=== PATIENT | male | born 1975 | race American Indian/Alaskan Native ===

== ENCOUNTER 2021-08-17 12:59 | Inpatient (IN) | payer OTHER ==
--- NOTE | 2021-08-17 14:33 | Event Note ---
ED Screening Note ED Screening Note: sent here by Dr Bryan presented to her with cp and sob hx hf- no follow up now with ble and ascities pmh hf rx none cig daily etoh no drugs psh sinus family hx cad on fathers side This initial assessment/diagnostic orders/clinical plan/treatment(s) is/are subject to change based on patients health status, clinical progression and re- assessment by fellow clinical providers in the ED. Further treatment and workup at subsequent clinical providers discretion. Patient/guardian urged not to elope from the ED as their condition may be serious if not clinically assessed and managed. Initial orders include: hf w/u
[2021-08-17 15:06] LABS: Basophils # (Auto) 0.1 K/mm3 (0.0-0.1); Basophils % (Auto) 1.4 % (0.0-1.8); Eosinophils # (Auto) 0.1 K/mm3 (0.0-0.4); Eosinophils % (Auto) 2.3 % (0.0-4.3); Hematocrit 41.7 % (35.5-45.6); Hemoglobin 13.2 gm/dl (11.8-15.2); Lymphocytes # (Auto) 1.2 K/mm3 (1.2-5.4); Lymphocytes % (Auto) 32.7 % (13.4-35.0); Mean Corpuscular HGB Conc 32 % (32-34); Mean Corpuscular Volume 93 fl (84-94); Monocytes # (Auto) 0.5 K/mm3 (0.0-0.8); Monocytes % (Auto) 13.4 % (0.0-7.3); Platelet Count 231 K/mm3 (140-440); Red Cell Distribution Width 18.3 % (13.2-15.2)
[2021-08-17 15:35] LABS: Alanine Aminotransferase 16 units/L (7-56); Albumin 3.4 g/dL (3.9-5); BUN/Creatinine Ratio 19; Blood Urea Nitrogen 15 mg/dL (9-20); Calcium 8.8 mg/dL (8.4-10.2); Hemolysis Index 24
[2021-08-17] MEDS ORDERED: cefTRIAXone/NS 2 GM/100 ML 2 GM/100 ML BAG IV ONE (16:09)
[2021-08-17] MEDS ORDERED: AZITHROMYCIN/NS 500 MG/250 ML 500 MG/250 ML BAG IV ONE (16:09)
[2021-08-17] MEDS ORDERED: ASPIRIN EC 325 MG TAB PO ONE (16:10)
[2021-08-17] MEDS ORDERED: FUROSEMIDE 40 MG/4 ML INJ IV ONE (16:10)
--- NOTE | 2021-08-17 16:13 | Emergency Department Report ---
HPI - General Chief Complaint: Chest Pain PUI?: Yes Time Seen by Provider: 08/17/21 14:31 - HPI HPI: 45-year-old male with history of CHF which was diagnosed several years ago but the patient never followed up and takes no daily medications presents today complaining of 1.5 weeks of symptoms including intermittent chest pain, pr ogressive lower extremity swelling, abdominal distention, dry cough, and shortness of breath. The patient states that he saw a primary care doctor today who sent him to the emergency room for further evaluation. The patient describes intermittent episodes of mid substernal chest pain which are non radiating and pressure-like lasting for few minutes and then resolving spontaneously. He says his last episode of chest pain was 2 days ago. He reports feeling generally short of breath with exertion and with a dry cough and increased swelling resulting in 30 pounds of unintentional weight gain. He otherwise denies any associated fever/chills, headache, vision change, neck pain, back pain, abdominal pain, nausea/vomiting, focal weakness, sensory changes, dysuria, discharge, or any other complaints. He is not vaccinated against COVID-19. He drinks approximately three alcoholic beverages per week. ED Past Medical Hx - Past Medical History Previous Medical History?: Yes Hx Congestive Heart Failure: Yes - Social History Smoking Status: Never Smoker ED Review of Systems ROS: Stated complaint: CHEST PAIN Other details as noted in HPI Comment: All other systems reviewed and negative Constitutional: denies: chills, fever Eyes: denies: eye pain, vision change ENT: denies: throat pain, congestion Respiratory: cough, shortness of breath, SOB with exertion Cardiovascular: chest pain, edema. denies: palpitations, syncope Gastrointestinal: denies: abdominal pain, nausea, vomiting Genitourinary: denies: dysuria, frequency Musculoskeletal: denies: back pain, arthralgia Skin: pruritus. denies: lesions Neurological: denies: headache, weakness, numbness, paresthesias Hematological/Lymphatic: denies: easy bleeding Physical Exam - Physical Exam Vital Signs: Vital Signs 08/17/21 14:19 Temperature 98.3 F Pulse Rate 108 H Respiratory 18 Rate Blood Pressure 136/97 O2 Sat by Pulse 97 Oximetry Physical Exam: GENERAL: Well developed and well nourished. No acute distress HEAD: Normocephalic. No obvious signs of trauma. ENT: Dry mucous membranes. EYES: Extraocular movements are intact. Pupils are equal round and reactive to light bilaterally. Scleral icterus noted bilaterally NECK: Supple. Full ROM is intact. Trachea is midline. LUNGS: Tachypneic but in no respiratory distress. Equal chest rise bilaterally. Decreased breath sounds noted over the right side all the way up to the upper lung zones. Otherwise clear to auscultation. CARDIOVASCULAR: Tachycardic but with regular rhythm. No murmurs or rubs. VASCULAR: Cap refill < 2 seconds. 3+ pitting edema bilaterally ABDOMEN: Abdomen is distended with positive fluid wave. No tenderness noted. There is no significant tenderness, guarding or rebound. SKIN: Skin is warm and dry NEURO: Patient is awake, alert, and oriented. seat coverer II-XII grossly intact. No focal deficits. Normal motor and sensory exam throughout. Normal speech. MUSCULOSKELETAL: No obvious deformities. No significant tenderness. Normal ROM throughout. BACK/SPINE: No midline tenderness or step-offs of the C/T/L spine. No costovertebral angle tenderness. ED Course Vital Signs 08/17/21 14:19 Temperature 98.3 F Pulse Rate 108 H Respiratory 18 Rate Blood Pressure 136/97 O2 Sat by Pulse 97 Oximetry ED Medical Decision Making - Lab Data Result diagrams: 08/17/21 14:50 08/17/21 14:50 Lab Results 08/17/21 08/17/21 08/17/21 Range/Units 14:50 14:50 15:51 WBC 3.7 L (4.5-11.0) K/mm3 RBC 4.50 (3.65-5.03) M/mm3 Hgb 13.2 (11.8-15.2) gm/dl Hct 41.7 (35.5-45.6) % MCV 93 (84-94) fl MCH 29 (28-32) pg MCHC 32 (32-34) % RDW 18.3 H (13.2-15.2) % Plt Count 231 (140-440) K/mm3 Lymph % (Auto) 32.7 (13.4-35.0) % [place] % (Auto) 13.4 H (0.0-7.3) % Eos % (Auto) 2.3 (0.0-4.3) % Baso % (Auto) 1.4 (0.0-1.8) % Lymph # (Auto) 1.2 (1.2-5.4) K/mm3 [place] # (Auto) 0.5 (0.0-0.8) K/mm3 Eos # (Auto) 0.1 (0.0-0.4) K/mm3 Baso # (Auto) 0.1 (0.0-0.1) K/mm3 Seg Neutrophils % 50.2 (40.0-70.0) % Seg Neutrophils # 1.9 (1.8-7.7) K/mm3 PT (12.2-14.9) Sec. INR (0.87-1.13) APTT (24.2-36.6) Sec. Sodium 135 L (137-145) mmol/L Potassium 4.6 (3.6-5.0) mmol/L Chloride 100.9 (98-107) mmol/L Carbon Dioxide 20 L (22-30) mmol/L Anion Gap 19 mmol/L BUN 15 (9-20) mg/dL Creatinine 0.8 (0.8-1.3) mg/dL Estimated GFR > 60 ml/min BUN/Creatinine Ratio 19 % Glucose 100 (75-100) mg/dL Calcium 8.8 (8.4-10.2) mg/dL Magnesium (1.7-2.3) mg/dL Total Bilirubin 2.40 H 2.40 H (0.1-1.2) mg/dL Direct Bilirubin 1.4 H (0-0.2) mg/dL Indirect Bilirubin 1.0 mg/dL AST 29 (5-40) units/L ALT 16 (7-56) units/L Alkaline Phosphatase 188 H (35-129) units/L Troponin T < 0.010 (0.00-0.029) ng/mL NT-Pro-B Natriuret Pep 1705 H (0-450) pg/mL Total Protein 9.2 H (6.3-8.2) g/dL Albumin 3.4 L (3.9-5) g/dL Albumin/Globulin Ratio 0.6 % Lipase 17 (13-60) units/L Plasma/Serum Alcohol (0-0.07) % 08/17/21 08/17/21 08/17/21 Range/Units 16:43 16:43 16:43 WBC (4.5-11.0) K/mm3 RBC (3.65-5.03) M/mm3 Hgb (11.8-15.2) gm/dl Hct (35.5-45.6) % MCV (84-94) fl MCH (28-32) pg MCHC (32-34) % RDW (13.2-15.2) % Plt Count (140-440) K/mm3 Lymph % (Auto) (13.4-35.0) % [place] % (Auto) (0.0-7.3) % Eos % (Auto) (0.0-4.3) % Baso % (Auto) (0.0-1.8) % Lymph # (Auto) (1.2-5.4) K/mm3 [place] # (Auto) (0.0-0.8) K/mm3 Eos # (Auto) (0.0-0.4) K/mm3 Baso # (Auto) (0.0-0.1) K/mm3 Seg Neutrophils % (40.0-70.0) % Seg Neutrophils # (1.8-7.7) K/mm3 PT 18.0 H (12.2-14.9) Sec. INR 1.35 H (0.87-1.13) APTT 37.2 H (24.2-36.6) Sec. Sodium (137-145) mmol/L Potassium (3.6-5.0) mmol/L Chloride (98-107) mmol/L Carbon Dioxide (22-30) mmol/L Anion Gap mmol/L BUN (9-20) mg/dL Creatinine (0.8-1.3) mg/dL Estimated GFR ml/min BUN/Creatinine Ratio % Glucose (75-100) mg/dL Calcium (8.4-10.2) mg/dL Magnesium 1.90 (1.7-2.3) mg/dL Total Bilirubin (0.1-1.2) mg/dL Direct Bilirubin (0-0.2) mg/dL Indirect Bilirubin mg/dL AST (5-40) units/L ALT (7-56) units/L Alkaline Phosphatase (35-129) units/L Troponin T (0.00-0.029) ng/mL NT-Pro-B Natriuret Pep (0-450) pg/mL Total Protein (6.3-8.2) g/dL Albumin (3.9-5) g/dL Albumin/Globulin Ratio % Lipase (13-60) units/L Plasma/Serum Alcohol < 0.01 (0-0.07) % - EKG Data -: EKG Interpreted by Mt - EKG Data 08/17/21 17:02 Sinus tachycardia. Normal axis. Normal intervals. No ectopy. Poor R wave noted in the lateral leads. No significant ST segment or T wave abnormalities. - Radiology Data Radiology results: report reviewed - Medical Decision Making 45-year-old male with history of CHF in the past who never followed up and does not take daily meds presenting with almost 2 weeks of symptoms including intermittent chest pain, shortness of breath, lower extremity and abdominal distention as well as dry cough. His last episode of chest pain was 2 days ago. Initial assessment shows that the patient is afebrile and with normal vital signs with the exception of elevated heart rate in the 100s. On physical examination he has dry mucous membranes and bilateral scleral icterus noted on exam. He has a nonfocal neurologic exam. Lung auscultation reveals decreased breath sounds noted over the right side but otherwise clear. He has abdominal distention with a positive fluid wave but is nontender. There is 3+ pitting edema the bilateral lower extremities. Labs were drawn in triage and reveal mild leukopenia with white blood cells of 3.7. There is no significant anemia. Kidney function is normal and there are no significant electrolyte abnormalities. However, T bili is elevated at 2.4. Troponin is negative. BNP is elevated at 1705. Lipase is normal. We will send D bili to determine whether hyperbilirubinemia is indirect or direct. Chest x-ray reveals moderate right pleural effusion with right basilar opacification and small left pleural effusion. Although this finding could be seen in CHF exacerbation, it could also be seen in parapneumonic effusion. The patient's T bili is elevated at 1.4. Given the elevated D bili as well as the patient's tachycardia and chest x-ray findings we will perform CTA of the chest/abdomen to assess for evidence of PE versus pneumonia versus hemorrhage versus pancreatitis versus hepatitis versus pyelonephritis versus colitis versus other intra thoracoabdominal abnormality to explain patient's presentation. Given the possibility of parapneumonic effusion we will give empiric IV ceftriaxone and azithromycin for possible community-acquired pneumonia. We will give full-strength aspirin given the patient's chest pain. Given suspected heart failure we will give Lasix 40 mg IV for now. Magnesium level is normal. Alcohol level is negative. Coags are noted to be elevated. CTA of the chest shows no evidence of pulmonary embolism but there is finding of small right pleural effusion with thickened pleura wall and loculated pleural fluid collection most consistent with empyema. CTA of the abdomen shows thickened gallbladder but no pericholecystic fluid and normal bile ducts. For further assessment of the gallbladder I have ordered right upper quadrant ultrasound. In addition for broader antibiotic coverage I have ordered 1 dose of IV Zosyn Given finding of possible empyema I spoke with Dr. Membreno of pulmonology regarding the case and she recommends admission to the hospital for possible pleurodesis and will give further recommendations on the inpatient side. I spoke with the patient regarding the current working diagnosis and results of the diagnostic tests as well as the plan of care for admission with IV antibiotics and for further work-up and management as deemed necessary. He expr essed understanding and agreement with this plan of care I spoke with Dr. Lind, the on-call hospitalist regarding case at 7:05 PM and he accepts the patient for admission and will assume care. Critical Care Time: Yes Critical care time in (mins) excluding proc time.: 35 Critical care attestation.: If time is entered above; I have spent that time in minutes in the direct care of this critically ill patient, excluding procedure time. Critical care time was spent in the evaluation/assessment, work-up, and management of acute on chronic CHF with volume overload as well as liver failure requiring administration of IV Lasix as well as broad-spectrum from IV antibiotics and consultation with specialist given possibility of empyema as well as discussion with the patient and frequent and repeat reevaluation and assessment. ED Disposition Clinical Impression: Ascites, Jaundice, Hyperbilirubinemia, Empyema, right, Suspected COVID-19 virus infection, Bilateral pleural effusion, Elevated INR, Acute exacerbation of CHF (congestive heart failure) Disposition: ADMITTED INPATIENT Is pt being admited?: Yes Condition: Stable
[2021-08-17 16:35] LABS: Bilirubin,Direct 1.4 mg/dL (0-0.2)
[2021-08-17 17:19] LABS: INR 1.35 (0.87-1.13)
[2021-08-17 17:20] LABS: Partial Thromboplastin Time 37.2 Sec. (24.2-36.6)
[2021-08-17] MEDS ORDERED: PIPERACIL/TAZOBACTA 4.5/NS 100 4.5 GM/100 ML VIAL IV ONE (18:29)
[2021-08-17] MEDS ORDERED: diphenhydrAMINE 50 MG/ML VIAL IV ONE (19:46)
[2021-08-17 19:48] LABS: Amphetamine Screen,Urine Negative; Benzodiazepines Screen,Urine Negative; Cannabinoid Screen,Urine Negative; Cocaine Screen,Urine Negative; Methadone Screen,Urine Negative; Opiate Screen,Urine Negative
[2021-08-17] MEDS ORDERED: ACETAMINOPHEN 325 MG TAB PO PRN (20:03)
[2021-08-17] MEDS ORDERED: oxyCODONE /ACETAMINOPHEN 5-325MG TAB PO PRN (20:03)
[2021-08-17] MEDS ORDERED: ONDANSETRON 4 MG/2 ML INJ IV PRN (20:03)
[2021-08-17] MEDS ORDERED: ALBUTEROL 2.5 MG/3 ML NEBU IH PRN (20:03)
[2021-08-17] MEDS ORDERED: HYDROmorphone 1 MG/1 ML INJ IV PRN (20:03)
[2021-08-17] MEDS ORDERED: LORazepam 2 MG/ML VIAL IV PRN (20:10)
[2021-08-17] MEDS ORDERED: THIAMINE 100 MG TAB PO ONE (20:11)
[2021-08-17] MEDS ORDERED: MULTIVITAMINS ,THERAPEUTIC TAB PO ONE (20:11)
--- NOTE | 2021-08-17 20:11 | History and Physical Report ---
History of Present Illness Chief complaint: My chest feels tight and my doctor told me to come in History of present illness: 45 YO Male with CHF, ETOH Dependence, Noncompliance presents ED for evaluation. Patient reports "my chest feels tight". Patient states that he has experienced chest discomfort over the past 10 days with intermittent symptoms over the same timeframe. Patient states that he has experienced dry cough, shortness of breath, and chest discomfort after coughing episodes. Patient states that he was seen by his primary care physician and was instructed to seek further care at [facility]. Patient transported to [facility] via private vehicle for further care and evaluation of the aforementioned symptoms. The patient was seen and evaluated in the emergency department. All lab and imaging studies reviewed. Patient underwent chest x-ray and was found to have small right-sided pleural effusion with suspected loculation, pneumonia, as well as lab findings consistent with CHF decompensation. Patient admitted to medical floor and initiated on CHF protocol as well as pneumonia protocol. Pulmonary team consulted in ED. Patient denies fever, chills, chest pain, palpitation, skin rash, recent contact, known exposure to COVID-19. No prior admission for review. No medication listed at time of admission for reconciliation. Advanced care planning conducted in ED. Past History Past Medical History: heart failure, other (See HPI) Past Surgical History: No surgical history, Other (Reviewed) Social history: , alcohol abuse. denies: smoking, prescription drug abuse Family history: hypertension Medications and Allergies Allergies Allergy/AdvReac Type Severity Reaction Status Date / Time No Known Allergies Allergy Verified 08/17/21 16:34 Active Meds: Active Medications Acetaminophen (Acetaminophen 325 Mg Tab) 650 mg PO Q4H PRN PRN Reason: Pain MILD(1-3)/Fever >100.5/MEDINA Albuterol (Albuterol 2.5 Mg/3 Ml Nebu) 2.5 mg IH Q4HRT PRN PRN Reason: Shortness Of Breath Furosemide (Furosemide 20 Mg/2 Ml Inj) 20 mg IV BID@0600,1800 LIA Hydromorphone HCl (Hydromorphone 1 Mg/1 Ml Inj) 0.5 mg IV Q23H PRN PRN Reason: Pain , Severe (7-10) Levofloxacin/Dextrose (Levaquin 750mg/150ml) 750 mg in 150 mls @ 100 mls/hr IV Q24H LIA; Protocol Lorazepam (Lorazepam 2 Mg/Ml Vial) 2 mg IV Q1HR PRN PRN Reason: CIWA-Ar 8-15 Ondansetron HCl (Ondansetron 4 Mg/2 Ml Inj) 4 mg IV Q8H PRN PRN Reason: Nausea And Vomiting Oxycodone/Acetaminophen (Oxycodone /Acetaminophen 5-325mg Tab) 1 tab PO Q16H PRN PRN Reason: Pain, Moderate (4-6) Sodium Chloride (Sodium Chloride 0.9% 10 Ml Flush Syringe) 10 ml IV BID LIA Sodium Chloride (Sodium Chloride 0.9% 10 Ml Flush Syringe) 10 ml IV PRN PRN PRN Reason: LINE FLUSH Review of Systems Constitutional: weight gain Ears, nose, mouth and throat: no ear pain, no tinnitis, no nose pain, no nasal congestion Cardiovascular: shortness of breath, leg edema, decreased exercise tolerance, no chest pain Respiratory: no cough, no cough with sputum, no excessive sputum Gastrointestinal: no abdominal pain, no nausea, no vomiting, no diarrhea Genitourinary Male: no hematuria, no flank pain, no discharge, no urinary frequency, no urinary hesitancy, no nocturia Rectal: no pain, no incontinence, no bleeding Musculoskeletal: no neck stiffness, no neck pain, no shooting arm pain, no arm numbness/tingling Integumentary: no rash, no pruritis, no sores, no wounds Neurological: no transient paralysis, no paralysis, no weakness, no parathesias Psychiatric: no anxiety, no memory loss, no change in sleep habits, no sleep disturbances, no change in appetite Endocrine: no cold intolerance, no heat intolerance, no polyphagia, no polyd ipsia, no polyuria Hematologic/Lymphatic: no easy bruising, no easy bleeding, no lymphedema Allergic/Immunologic: no urticaria, no wheezing, no persistent infections, no anaphylaxis Exam - Constitutional Vitals: Temp Pulse Resp BP Pulse Ox 98.3 F 100 H 13 134/89 100 08/17/21 14:19 08/17/21 19:15 08/17/21 19:15 08/17/21 19:15 08/17/21 19:15 General appearance: Present: mild distress - EENT Eyes: Present: PERRL ENT: hearing intact, clear oral mucosa - Neck Neck: Present: supple, normal ROM - Respiratory Respiratory effort: normal Respiratory: right: diminished - Cardiovascular Rhythm: regular Heart Sounds: Present: S1 & S2. Absent: rub, click - Extremities Extremities: pulses symmetrical Extremity abnormal: edema Peripheral Pulses: within normal limits - Abdominal General gastrointestinal: Present: soft, non-tender, non-distended, normal bowel sounds Male genitourinary: Present: normal - Integumentary Integumentary: Present: clear, warm, dry - Musculoskeletal Musculoskeletal: gait normal, strength equal bilaterally - Psychiatric Psychiatric: appropriate mood/affect, intact judgment & insight - Neurologic Neurologic: CNII-XII intact, moves all extremities HEART Score - HEART Score Troponin: Troponin T < 0.010 ng/mL (0.00-0.029) 08/17/21 17:53 Results - Labs CBC & Chem 7: 08/17/21 14:50 08/17/21 14:50 Labs: Abnormal lab results 08/17/21 08/17/21 08/17/21 Range/Units 14:50 14:50 15:51 WBC 3.7 L (4.5-11.0) K/mm3 RDW 18.3 H (13.2-15.2) % [place] % (Auto) 13.4 H (0.0-7.3) % PT (12.2-14.9) Sec. INR (0.87-1.13) APTT (24.2-36.6) Sec. Sodium 135 L (137-145) mmol/L Carbon Dioxide 20 L (22-30) mmol/L Total Bilirubin 2.40 H 2.40 H (0.1-1.2) mg/dL Direct Bilirubin 1.4 H (0-0.2) mg/dL Alkaline Phosphatase 188 H (35-129) units/L NT-Pro-B Natriuret Pep 1705 H (0-450) pg/mL Total Protein 9.2 H (6.3-8.2) g/dL Albumin 3.4 L (3.9-5) g/dL 08/17/21 Range/Units 16:43 WBC (4.5-11.0) K/mm3 RDW (13.2-15.2) % [place] % (Auto) (0.0-7.3) % PT 18.0 H (12.2-14.9) Sec. INR 1.35 H (0.87-1.13) APTT 37.2 H (24.2-36.6) Sec. Sodium (137-145) mmol/L Carbon Dioxide (22-30) mmol/L Total Bilirubin (0.1-1.2) mg/dL Direct Bilirubin (0-0.2) mg/dL Alkaline Phosphatase (35-129) units/L NT-Pro-B Natriuret Pep (0-450) pg/mL Total Protein (6.3-8.2) g/dL Albumin (3.9-5) g/dL Assessment and Plan - Patient Problems (1) Pneumonia Current Visit: Yes Status: Acute Plan to address problem: Pneumonia protocol: Chest x-ray, CT scan chest, supplemental oxygen, pulse oximetry, IV antibiotic therapy, nebulizer therapy, pulmonary team consulted. (2) CHF (congestive heart failure) Current Visit: Yes Status: Acute Qualifiers: Heart failure chronicity: chronic Plan to address problem: Strict I/O, monitor urine output every shift, daily weight, afterload reduction, diuresis, BNP (3) Pleural effusion Current Visit: Yes Status: Acute Plan to address problem: Chest x-ray, CT scan chest, pulmonary team consulted. (4) Alcohol dependence Current Visit: Yes Status: Acute Plan to address problem: CIWA protocol, thiamine, folic acid, multivitamin daily. (5) Monoclonal gammopathy Current Visit: Yes Status: Acute Plan to address problem: Patient has elevated gamma gap. HIV, hepatitis panel, supportive care. (6) Noncompliance with medication regimen Current Visit: Yes Status: Acute Plan to address problem: Patient counseled regarding importance of medication compliance as well as outpatient medical follow-up. Patient reports that he will be more compliant in the future. (7) COVID-19 vaccination not done Current Visit: Yes Status: Acute Plan to address problem: Patient counseled, supportive care. (8) DVT prophylaxis Current Visit: Yes Status: Acute Plan to address problem: SCD bilateral lower extremities while in bed, patient is ambulatory (9) Advance care planning Current Visit: Yes Status: Acute Plan to address problem: Disease education conducted, care plan discussed, diagnoses discussed, prognosis discussed, patient is full code. Patient acknowledges understanding and agreement with care plan, +30 minutes.
[2021-08-17 23:13] LABS: RBC,Urine < 1.0 /HPF (0.0-6.0); WBC,Urine < 1.0 /HPF (0.0-6.0)
[2021-08-17 23:33] LABS: Color,Urine Colorless (Yellow)
[2021-08-17 23:34] LABS: Bilirubin,Urine Negative (Negative); Blood,Urine Negative (Negative); Protein,Urine <15 mg/dL mg/dL (Negative)
--- NOTE | 2021-08-17 23:53 | XRay Report ---
CHEST 2 VIEWS INDICATION / CLINICAL INFORMATION: Chest Pain. COMPARISON: None available. FINDINGS: SUPPORT DEVICES: None. HEART / MEDIASTINUM: No significant abnormality. LUNGS / PLEURA: There is a moderate right pleural effusion with right basilar opacification and small left pleural effusion with left basilar opacification. No pneumothorax. ADDITIONAL FINDINGS: No significant additional findings. IMPRESSION: 1. 100 right pleural effusion and small left pleural effusion with bibasilar opacifications. Signer Name: Jan Mercer DO Signed: 08/17/2021 2:57 PM Workstation Name: [id number]
--- NOTE | 2021-08-17 23:53 | Cat Scan Report ---
CTA CHEST WITH CONTRAST INDICATION / CLINICAL INFORMATION: R pleural effusion, tachy, eval for PE. TECHNIQUE: Axial CT images were obtained through the chest after injection of 100 cc of Omnipaque 350 IV contrast. 3 plane MIP and/or 3D reconstructions were produced. All CT scans at this location are performed using CT dose reduction for ALARA by means of automated exposure control. COMPARISON: Chest radiograph from earlier in the day FINDINGS: PULMONARY ARTERIES: No pulmonary emboli. THORACIC AORTA: No significant abnormality. HEART: Cardiomegaly CORONARY ARTERY CALCIFICATION: None. MEDIASTINUM / RALPH: No significant abnormality. PLEURA: There is a small dependent left pleural effusion. There is a small right pleural effusion wit h thickened and enhancing pleural wall. There is loculated pleural fluid collection in the minor fiss ure. No pneumothorax. LUNGS: There is rounded atelectasis within the right lower lobe. There is dependent atelectasis in th e bilateral lung bases. No concerning focal consolidation, pulmonary mass or nodule. ADDITIONAL FINDINGS: None. SKELETAL STRUCTURES: No significant osseous abnormality. IMPRESSION: 1. No CT evidence for pulmonary embolism. 2. Small right pleural effusion with thickened and enhancing pleural wall. This suggests empyema. The re is rounded atelectasis in the adjacent lung. 3. Dependent left pleural effusion. 4. Cardiomegaly. CT ABDOMEN AND PELVIS WITH CONTRAST INDICATION / CLINICAL INFORMATION: R pleural effusion, tachy, eval for PE. TECHNIQUE: Axial CT images were obtained through the abdomen and pelvis after 100 cc of Omnipaque [address] scans at this location are performed using CT dose reduction for ALARA by means of automated exposure control. COMPARISON: None available. FINDINGS: AORTA / ARTERIES: Mild atherosclerotic calcification without acute abnormality. IVC / VEINS: No significant abnormality. LYMPH NODES: No significant adenopathy. COLON: No significant abnormality. APPENDIX: No significant abnormality. STOMACH / SMALL BOWEL: No significant abnormality. PERITONEUM: Mild/moderate intra-abdominal ascites. No free air. No fluid collection. LIVER: Mild decreased attenuation which may be secondary to hepatic steatosis versus diffuse hepatic disease. GALLBLADDER: Mild gallbladder wall thickening. BILE DUCTS: No significant abnormality. PANCREAS: No significant abnormality. SPLEEN: No significant abnormality. ADRENALS: No significant abnormality. RIGHT KIDNEY / URETER: No significant abnormality. LEFT KIDNEY / URETER: No significant abnormality. URINARY BLADDER: No significant abnormality. REPRODUCTIVE ORGANS: No significant abnormality. SKELETAL SYSTEM: No significant abnormality. ADDITIONAL FINDINGS: None. IMPRESSION: 1. There is mild to moderate intra-abdominal ascites. 2. Mild thickening of the gallbladder wall without pericholecystic inflammation. 3. Decreased attenuation of the liver suggesting hepatic steatosis versus diffuse hepatic disease Please see above for impression of the CT pulmonary angiogram Signer Name: Jan Mercer DO Signed: 08/17/2021 6:18 PM Workstation Name: [id number]
--- NOTE | 2021-08-17 23:54 | Ultrasound Report ---
ULTRASOUND ABDOMEN, LIMITED INDICATION / CLINICAL INFORMATION: assess GB. COMPARISON: None available. FINDINGS: PANCREAS: Not well visualized due to overlying bowel gas. LIVER: The liver is enlarged measuring 18.9 cm. The liver is also echogenic. The main portal vein is patent. GALLBLADDER: The gallbladder is contracted and the wall measures 3 mm. No pericholecystic fluid. No s tones. BILE DUCTS: No significant abnormality. Common bile duct measures 3 mm. FREE FLUID: Mild ascites. ADDITIONAL FINDINGS: None. IMPRESSION: 1. Hepatomegaly and steatosis. 2. The gallbladder is contracted. No sonographic evidence of cholecystitis. No gallstones. 3. Mild ascites. Signer Name: Elias Springer MD Signed: 08/17/2021 9:28 PM Workstation Name: [id number]
[2021-08-18] MEDS ORDERED: THIAMINE 100 MG TAB PO ONE (00:30)
[2021-08-18] MEDS ORDERED: MULTIVITAMINS ,THERAPEUTIC TAB PO ONE (00:30)
[2021-08-18] MEDS ORDERED: PIPERACIL/TAZOBACTA 4.5/NS 100 4.5 GM/100 ML VIAL IV ONE (00:30)
[2021-08-18 00:35] LABS: Hepatitis B Surface Antigen Non-Reactive (Negative); Hepatitis C Virus Antibody Non-Reactive (NonReactive)
[2021-08-18 06:04] LABS: Basophils # (Auto) 0.1 K/mm3 (0.0-0.1); Basophils % (Auto) 1.4 % (0.0-1.8); Eosinophils # (Auto) 0.2 K/mm3 (0.0-0.4); Eosinophils % (Auto) 4.5 % (0.0-4.3); Hematocrit 38.8 % (35.5-45.6); Hemoglobin 12.2 gm/dl (11.8-15.2); Lymphocytes # (Auto) 1.1 K/mm3 (1.2-5.4); Lymphocytes % (Auto) 28.8 % (13.4-35.0); Mean Corpuscular HGB Conc 31 % (32-34); Mean Corpuscular Volume 94 fl (84-94); Monocytes # (Auto) 0.6 K/mm3 (0.0-0.8); Monocytes % (Auto) 15.1 % (0.0-7.3); Platelet Count 206 K/mm3 (140-440); Red Blood Count 4.15 M/mm3 (3.65-5.03); Red Cell Distribution Width 18.3 % (13.2-15.2)
[2021-08-18 06:12] LABS: Alanine Aminotransferase 13 units/L (7-56); Albumin 2.9 g/dL (3.9-5); BUN/Creatinine Ratio 16; Blood Urea Nitrogen 16 mg/dL (9-20); Calcium 8.7 mg/dL (8.4-10.2); Hemolysis Index 0
[2021-08-18] MEDS: FUROSEMIDE 20 MG/2 ML INJ IV SCH ×2 (06:23→18:36)
--- NOTE | 2021-08-18 09:54 | Progress Note ---
Assessment and Plan Assessment and plan: Bilateral pneumonia Suspected COVID-19 pneumonia Bilateral pleural effusion. CTA suggestive of empyema for right pleural effusion EtOH abuse. Monoclonal gammopathy 08/18/2021. Continue O2 supplementation to maintain sats greater than 92%. Continue IV antibiotics of Levaquin. Consider ID consultation. Await pulmonary evaluation. Follow-up echocardiogram for bilateral pleural effusion. However, I suspect pleural effusions are para pneumonic. Check procalcitonin levels. History Interval history: No new issues overnight Hospitalist Physical - Constitutional Vitals: Temp Pulse Resp BP Pulse Ox 98.3 F 99 H 16 105/81 97 08/17/21 14:19 08/18/21 08:46 08/18/21 08:46 08/18/21 08:46 08/18/21 08:46 General appearance: Present: mild distress - EENT Eyes: Present: PERRL, EOM intact ENT: hearing intact, clear oral mucosa, dentition normal - Neck Neck: Present: supple, normal ROM - Respiratory Respiratory effort: normal Respiratory: bilateral: CTA - Cardiovascular Rhythm: regular Heart Sounds: Present: S1 & S2. Absent: gallop, rub - Extremities Extremities: no ischemia, No edema, Full ROM - Abdominal General gastrointestinal: soft, non-tender, non-distended, normal bowel sounds - Integumentary Integumentary: Present: clear, warm, dry - Neurologic Neurologic: CNII-XII intact, moves all extremities HEART Score - HEART Score Troponin: Troponin T < 0.010 ng/mL (0.00-0.029) 08/17/21 19:37 Results - Labs CBC & Chem 7: 08/18/21 05:27 08/18/21 05:27 Labs: Laboratory Last Values WBC 3.9 K/mm3 (4.5-11.0) L 08/18/21 05:27 RBC 4.15 M/mm3 (3.65-5.03) 08/18/21 05:27 Hgb 12.2 gm/dl (11.8-15.2) 08/18/21 05:27 Hct 38.8 % (35.5-45.6) 08/18/21 05:27 MCV 94 fl (84-94) 08/18/21 05:27 MCH 29 pg (28-32) 08/18/21 05:27 MCHC 31 % (32-34) L 08/18/21 05:27 RDW 18.3 % (13.2-15.2) H 08/18/21 05:27 Plt Count 206 K/mm3 (140-440) 08/18/21 05:27 Lymph % (Auto) 28.8 % (13.4-35.0) 08/18/21 05:27 [place] % (Auto) 15.1 % (0.0-7.3) H 08/18/21 05:27 Eos % (Auto) 4.5 % (0.0-4.3) H 08/18/21 05:27 Baso % (Auto) 1.4 % (0.0-1.8) 08/18/21 05:27 Lymph # (Auto) 1.1 K/mm3 (1.2-5.4) L 08/18/21 05:27 [place] # (Auto) 0.6 K/mm3 (0.0-0.8) 08/18/21 05:27 Eos # (Auto) 0.2 K/mm3 (0.0-0.4) 08/18/21 05:27 Baso # (Auto) 0.1 K/mm3 (0.0-0.1) 08/18/21 05:27 Seg Neutrophils % 50.2 % (40.0-70.0) 08/18/21 05:27 Seg Neutrophils # 2.0 K/mm3 (1.8-7.7) 08/18/21 05:27 PT 18.0 Sec. (12.2-14.9) H 08/17/21 16:43 INR 1.35 (0.87-1.13) H 08/17/21 16:43 APTT 37.2 Sec. (24.2-36.6) H 08/17/21 16:43 Sodium 133 mmol/L (137-145) L 08/18/21 05:27 Potassium 4.2 mmol/L (3.6-5.0) 08/18/21 05:27 Chloride 101.7 mmol/L (98-107) 08/18/21 05:27 Carbon Dioxide 21 mmol/L (22-30) L 08/18/21 05:27 Anion Gap 15 mmol/L 08/18/21 05:27 BUN 16 mg/dL (9-20) 08/18/21 05:27 Creatinine 1.0 mg/dL (0.8-1.3) 08/18/21 05:27 Estimated GFR > 60 ml/min 08/18/21 05:27 BUN/Creatinine Ratio 16 % 08/18/21 05:27 Glucose 98 mg/dL (75-100) 08/18/21 05:27 Calcium 8.7 mg/dL (8.4-10.2) 08/18/21 05:27 Magnesium 1.90 mg/dL (1.7-2.3) 08/17/21 16:43 Total Bilirubin 2.30 mg/dL (0.1-1.2) H 08/18/21 05:27 Direct Bilirubin 1.4 mg/dL (0-0.2) H 08/17/21 15:51 Indirect Bilirubin 1.0 mg/dL 08/17/21 15:51 AST 23 units/L (5-40) 08/18/21 05:27 ALT 13 units/L (7-56) 08/18/21 05:27 Alkaline Phosphatase 165 units/L (35-129) H 08/18/21 05:27 Troponin T < 0.010 ng/mL (0.00-0.029) 08/17/21 19:37 NT-Pro-B Natriuret Pep 1705 pg/mL (0-450) H 08/17/21 14:50 Total Protein 8.2 g/dL (6.3-8.2) 08/18/21 05:27 Albumin 2.9 g/dL (3.9-5) L 08/18/21 05:27 Albumin/Globulin Ratio 0.5 % 08/18/21 05:27 Lipase 17 units/L (13-60) 08/17/21 14:50 Urine Color Colorless (Yellow) 08/17/21 19:01 Urine Turbidity Clear (Clear) 08/17/21 19:01 Urine pH 5.0 (5.0-7.0) 08/17/21 19:01 Ur Specific [place] 1.005 (1.003-1.030) 08/17/21 19:01 Urine Protein <15 mg/dl mg/dL (Negative) 08/17/21 19:01 Urine Glucose (UA) Negative mg/dL (Negative) 08/17/21 19:01 Urine Ketones Negative mg/dL (Negative) 08/17/21 19:01 Urine Blood Negative (Negative) 08/17/21 19:01 Urine Nitrite Negative (Negative) 08/17/21 19:01 Ur Reducing Substances Not Reportable 08/17/21 19:01 Urine Bilirubin Negative (Negative) 08/17/21 19:01 Urine Ictotest Not Reportable 08/17/21 19:01 Urine Urobilinogen Not Reportable 08/17/21 19:01 Ur Leukocyte Esterase Negative (Negative) 08/17/21 19:01 Urine WBC (Auto) < 1.0 /HPF (0.0-6.0) 08/17/21 19:01 Urine RBC (Auto) < 1.0 /HPF (0.0-6.0) 08/17/21 19:01 Urine Opiates Screen Negative 08/17/21 19:01 Urine Methadone Screen Negative 08/17/21 19:01 Ur Barbiturates Screen Negative 08/17/21 19:01 Ur Phencyclidine Scrn Negative 08/17/21 19:01 Ur Amphetamines Screen Negative 08/17/21 19:01 U Benzodiazepines Scrn Negative 08/17/21 19:01 Urine Cocaine Screen Negative 08/17/21 19:01 U Marijuana (THC) Screen Negative 08/17/21 19:01 Drugs of Abuse Note Disclamer 08/17/21 19:01 Plasma/Serum Alcohol < 0.01 % (0-0.07) 08/17/21 16:43 Hepatitis A IgM Ab Non-reactive (NonReactive) 08/17/21 20:38 Hep Bs Antigen Non-reactive (Negative) 08/17/21 20:38 Hep B Core IgM Ab Non-reactive (NonReactive) 08/17/21 20:38 Hepatitis C Antibody Non-reactive (NonReactive) 08/17/21 20:38 HIV 1&2 Antibody Rapid Non react (Non React) 08/17/21 20:38 HIV P24 Antigen Non react (Non React) 08/17/21 20:38 Microbiology: Microbiology 08/17/21 16:49 Peripheral/Venous Blood Culture - Preliminary Culture in Progress 08/17/21 16:43 Peripheral/Venous Blood Culture - Preliminary Culture in Progress Active Medications - Current Medications Current Medications: Generic Name Dose Route Start Last Admin Trade Name Freq PRN Reason Stop Dose Admin Acetaminophen 650 mg 08/17/21 20:03 Acetaminophen 325 Mg Tab PO Q4H PRN Pain MILD(1-3)/Fever >100.5/MEDINA Albuterol 2.5 mg 08/17/21 20:03 Albuterol 2.5 Mg/3 Ml Nebu IH Q4HRT PRN Shortness Of Breath Folic Acid 1 mg 08/18/21 10:00 Folic Acid 1 Mg Tab PO QDAY LIA Furosemide 20 mg 08/18/21 06:00 08/18/21 06:23 Furosemide 20 Mg/2 Ml Inj IV 20 mg BID@0600,1800 LIA Administration Hydromorphone HCl 0.5 mg 08/17/21 20:03 Hydromorphone 1 Mg/1 Ml Inj IV Q23H PRN Pain , Severe (7-10) Levofloxacin/Dextrose 750 mg in 150 mls @ 100 mls/hr 08/18/21 21:00 Levaquin 750mg/150ml IV Q24H [facility] Protocol Lorazepam 2 mg 08/17/21 20:10 Lorazepam 2 Mg/Ml Vial IV Q1HR PRN CIWA-Ar 8-15 Ondansetron HCl 4 mg 08/17/21 20:03 Ondansetron 4 Mg/2 Ml Inj IV Q8H PRN Nausea And Vomiting Oxycodone/Acetaminophen 1 tab 08/17/21 20:03 Oxycodone /Acetaminophen 5-325mg Tab PO Q16H PRN Pain, Moderate (4-6) Sodium Chloride 10 ml 08/17/21 22:00 08/18/21 00:11 Sodium Chloride 0.9% 10 Ml Flush Syringe IV 10 ml BID LIA Administration Sodium Chloride 10 ml 08/17/21 20:03 Sodium Chloride 0.9% 10 Ml Flush Syringe IV PRN PRN LINE FLUSH
--- NOTE | 2021-08-18 10:23 | Consultation ---
History of Present Illness Consult date: 08/18/21 History of present illness: Patient getting Ultrasound now so not able to examine fully. Same history as from HPI in ED and IMS note. Past History Past Medical History: heart failure, other (See HPI) Past Surgical History: No surgical history, Other (Reviewed) Social history: , alcohol abuse. denies: smoking, prescription drug abuse Family history: hypertension Medications and Allergies Allergies Allergy/AdvReac Type Severity Reaction Status Date / Time No Known Allergies Allergy Verified 08/17/21 16:34 Active Meds: Active Medications Acetaminophen (Acetaminophen 325 Mg Tab) 650 mg PO Q4H PRN PRN Reason: Pain MILD(1-3)/Fever >100.5/MEDINA Albuterol (Albuterol 2.5 Mg/3 Ml Nebu) 2.5 mg IH Q4HRT PRN PRN Reason: Shortness Of Breath Folic Acid (Folic Acid 1 Mg Tab) 1 mg PO QDAY REPLACED BY [facility] Furosemide (Furosemide 20 Mg/2 Ml Inj) 20 mg IV BID@0600,1800 REPLACED BY [facility] Last Admin: 08/18/21 06:23 Dose: 20 mg Hydromorphone HCl (Hydromorphone 1 Mg/1 Ml Inj) 0.5 mg IV Q23H PRN PRN Reason: Pain , Severe (7-10) Levofloxacin/Dextrose (Levaquin 750mg/150ml) 750 mg in 150 mls @ 100 mls/hr IV Q24H REPLACED BY [facility]; Protocol Lorazepam (Lorazepam 2 Mg/Ml Vial) 2 mg IV Q1HR PRN PRN Reason: CIWA-Ar 8-15 Ondansetron HCl (Ondansetron 4 Mg/2 Ml Inj) 4 mg IV Q8H PRN PRN Reason: Nausea And Vomiting Oxycodone/Acetaminophen (Oxycodone /Acetaminophen 5-325mg Tab) 1 tab PO Q16H PRN PRN Reason: Pain, Moderate (4-6) Sodium Chloride (Sodium Chloride 0.9% 10 Ml Flush Syringe) 10 ml IV BID REPLACED BY [facility] Last Admin: 08/18/21 00:11 Dose: 10 ml Sodium Chloride (Sodium Chloride 0.9% 10 Ml Flush Syringe) 10 ml IV PRN PRN PRN Reason: LINE FLUSH Physical Examination Vital signs: Vital Signs Temp Pulse Resp BP Pulse Ox 98.3 F 108 H 18 136/97 97 08/17/21 14:19 08/17/21 14:19 08/17/21 14:19 08/17/21 14:19 08/17/21 14:19 Results - Laboratory Findings CBC and BMP: 08/18/21 05:27 08/18/21 05:27 PT/INR, D-dimer PT 18.0 Sec. (12.2-14.9) H 08/17/21 16:43 INR 1.35 (0.87-1.13) H 08/17/21 16:43 Abnormal lab findings: Abnormal Labs 08/17/21 08/17/21 08/17/21 14:50 14:50 15:51 WBC 3.7 L MCHC RDW 18.3 H [place] % (Auto) 13.4 H Eos % (Auto) Lymph # (Auto) PT INR APTT Sodium 135 L Carbon Dioxide 20 L Total Bilirubin 2.40 H 2.40 H Direct Bilirubin 1.4 H Alkaline Phosphatase 188 H NT-Pro-B Natriuret Pep 1705 H Total Protein 9.2 H Albumin 3.4 L 08/17/21 08/18/21 08/18/21 16:43 05:27 05:27 WBC 3.9 L MCHC 31 L RDW 18.3 H [place] % (Auto) 15.1 H Eos % (Auto) 4.5 H Lymph # (Auto) 1.1 L PT 18.0 H INR 1.35 H APTT 37.2 H Sodium 133 L Carbon Dioxide 21 L Total Bilirubin 2.30 H Direct Bilirubin Alkaline Phosphatase 165 H NT-Pro-B Natriuret Pep Total Protein Albumin 2.9 L Assessment and Plan 45 y/o male with known CHF, found to have small bilateral pleural effusions with what looks like to me on CT atelectasis with effusion on the right but rads is concerned for empyema. 1. Patient has had pleuritic like chest pain. Suggest obtaining ultrasound guided thoracentesis and ask that the drain the right sided completely. If puss, then would need chest tube for complete drainage. No objection to abx therapy. Please send fluid for the following: LDH, Protein, Cell count with diff, culture, glucose. 2. Agree with diuretics, obtain 2D echo 3. ok with abx but if space is infected, then drainage is the only thing that will help.
[2021-08-18] MEDS: FOLIC ACID 1 MG TAB PO SCH (12:57)
--- NOTE | 2021-08-18 14:05 | Electrocardiograph Report ---
[facility] Test Date: 2021-08-17 Test Time: 16:26:21 Pat Name: JADIEL MEADOWS Department: Room: A389 Gender: M [employer]: WOO : [id number] Requested By: LUIZ PANTOJA Order Number: [id number] Reading MD: Balbina Wells Measurements Intervals [place] Rate: 103 P: 32 LA: 189 QRS: 60 QRSD: 87 T: QT: 365 QTc: 478 Interpretive Statements Sinus tachycardia Left atrial enlargement Low voltage, extremity leads No previous ECG available for comparison Electronically Signed On 08-18-2021 14:05:01 EST by Balbina Wells
[2021-08-19] MEDS: FUROSEMIDE 20 MG/2 ML INJ IV SCH ×2 (06:14→17:46)
[2021-08-19] MEDS: FOLIC ACID 1 MG TAB PO SCH (09:09)
--- NOTE | 2021-08-19 10:59 | Progress Note ---
Assessment and Plan Assessment and plan: Bilateral pneumonia Suspected COVID-19 pneumonia Bilateral pleural effusion. CTA suggestive of empyema for right pleural effusion EtOH abuse. Monoclonal gammopathy 08/18/2021. Continue O2 supplementation to maintain sats greater than 92%. Continue IV antibiotics of Levaquin. Consider ID consultation. Await pulmonary evaluation. Follow-up echocardiogram for bilateral pleural effusion. However, I suspect pleural effusions are para pneumonic. Check procalcitonin levels. 08/19/2021. We will plan for thoracentesis to further evaluate pleural effusion. Follow-up echocardiogram. Consider cardiology consultation. Continue antibiotics for now. History Interval history: No new issues overnight Hospitalist Physical - Constitutional Vitals: Temp Pulse Resp BP Pulse Ox 98.1 F 111 H 20 111/83 97 08/19/21 05:01 08/19/21 05:01 08/19/21 06:00 08/19/21 05:01 08/19/21 06:00 General appearance: Present: no acute distress - EENT Eyes: Present: PERRL, EOM intact ENT: hearing intact, clear oral mucosa, dentition normal - Neck Neck: Present: supple, normal ROM - Respiratory Respiratory effort: normal Respiratory: bilateral: CTA - Cardiovascular Rhythm: regular Heart Sounds: Present: S1 & S2. Absent: gallop, rub - Extremities Extremities: no ischemia, No edema, Full ROM - Abdominal General gastrointestinal: soft, non-tender, non-distended, normal bowel sounds - Integumentary Integumentary: Present: clear, warm, dry - Neurologic Neurologic: CNII-XII intact, moves all extremities HEART Score - HEART Score Troponin: Troponin T < 0.010 ng/mL (0.00-0.029) 08/17/21 19:37 Results - Labs CBC & Chem 7: 08/18/21 05:27 08/18/21 05:27 Labs: Laboratory Last Values WBC 3.9 K/mm3 (4.5-11.0) L 08/18/21 05:27 RBC 4.15 M/mm3 (3.65-5.03) 08/18/21 05:27 Hgb 12.2 gm/dl (11.8-15.2) 08/18/21 05:27 Hct 38.8 % (35.5-45.6) 08/18/21 05:27 MCV 94 fl (84-94) 08/18/21 05:27 MCH 29 pg (28-32) 08/18/21 05:27 MCHC 31 % (32-34) L 08/18/21 05:27 RDW 18.3 % (13.2-15.2) H 08/18/21 05:27 Plt Count 206 K/mm3 (140-440) 08/18/21 05:27 Lymph % (Auto) 28.8 % (13.4-35.0) 08/18/21 05:27 [place] % (Auto) 15.1 % (0.0-7.3) H 08/18/21 05:27 Eos % (Auto) 4.5 % (0.0-4.3) H 08/18/21 05:27 Baso % (Auto) 1.4 % (0.0-1.8) 08/18/21 05:27 Lymph # (Auto) 1.1 K/mm3 (1.2-5.4) L 08/18/21 05:27 [place] # (Auto) 0.6 K/mm3 (0.0-0.8) 08/18/21 05:27 Eos # (Auto) 0.2 K/mm3 (0.0-0.4) 08/18/21 05:27 Baso # (Auto) 0.1 K/mm3 (0.0-0.1) 08/18/21 05:27 Seg Neutrophils % 50.2 % (40.0-70.0) 08/18/21 05:27 Seg Neutrophils # 2.0 K/mm3 (1.8-7.7) 08/18/21 05:27 PT 18.0 Sec. (12.2-14.9) H 08/17/21 16:43 INR 1.35 (0.87-1.13) H 08/17/21 16:43 APTT 37.2 Sec. (24.2-36.6) H 08/17/21 16:43 Sodium 133 mmol/L (137-145) L 08/18/21 05:27 Potassium 4.2 mmol/L (3.6-5.0) 08/18/21 05:27 Chloride 101.7 mmol/L (98-107) 08/18/21 05:27 Carbon Dioxide 21 mmol/L (22-30) L 08/18/21 05:27 Anion Gap 15 mmol/L 08/18/21 05:27 BUN 16 mg/dL (9-20) 08/18/21 05:27 Creatinine 1.0 mg/dL (0.8-1.3) 08/18/21 05:27 Estimated GFR > 60 ml/min 08/18/21 05:27 BUN/Creatinine Ratio 16 % 08/18/21 05:27 Glucose 98 mg/dL (75-100) 08/18/21 05:27 Calcium 8.7 mg/dL (8.4-10.2) 08/18/21 05:27 Magnesium 1.90 mg/dL (1.7-2.3) 08/17/21 16:43 Total Bilirubin 2.30 mg/dL (0.1-1.2) H 08/18/21 05:27 Direct Bilirubin 1.4 mg/dL (0-0.2) H 08/17/21 15:51 Indirect Bilirubin 1.0 mg/dL 08/17/21 15:51 AST 23 units/L (5-40) 08/18/21 05:27 ALT 13 units/L (7-56) 08/18/21 05:27 Alkaline Phosphatase 165 units/L (35-129) H 08/18/21 05:27 Troponin T < 0.010 ng/mL (0.00-0.029) 08/17/21 19:37 NT-Pro-B Natriuret Pep 1705 pg/mL (0-450) H 08/17/21 14:50 Total Protein 8.2 g/dL (6.3-8.2) 08/18/21 05:27 Albumin 2.9 g/dL (3.9-5) L 08/18/21 05:27 Albumin/Globulin Ratio 0.5 % 08/18/21 05:27 Lipase 17 units/L (13-60) 08/17/21 14:50 Procalcitonin 0.09 ng/mL (<0.15) 08/18/21 10:52 Urine Color Colorless (Yellow) 08/17/21 19:01 Urine Turbidity Clear (Clear) 08/17/21 19:01 Urine pH 5.0 (5.0-7.0) 08/17/21 19:01 Ur Specific [place] 1.005 (1.003-1.030) 08/17/21 19:01 Urine Protein <15 mg/dl mg/dL (Negative) 08/17/21 19:01 Urine Glucose (UA) Negative mg/dL (Negative) 08/17/21 19:01 Urine Ketones Negative mg/dL (Negative) 08/17/21 19:01 Urine Blood Negative (Negative) 08/17/21 19:01 Urine Nitrite Negative (Negative) 08/17/21 19:01 Ur Reducing Substances Not Reportable 08/17/21 19:01 Urine Bilirubin Negative (Negative) 08/17/21 19:01 Urine Ictotest Not Reportable 08/17/21 19:01 Urine Urobilinogen Not Reportable 08/17/21 19:01 Ur Leukocyte Esterase Negative (Negative) 08/17/21 19:01 Urine WBC (Auto) < 1.0 /HPF (0.0-6.0) 08/17/21 19:01 Urine RBC (Auto) < 1.0 /HPF (0.0-6.0) 08/17/21 19:01 Urine Opiates Screen Negative 08/17/21 19:01 Urine Methadone Screen Negative 08/17/21 19:01 Ur Barbiturates Screen Negative 08/17/21 19:01 Ur Phencyclidine Scrn Negative 08/17/21 19:01 Ur Amphetamines Screen Negative 08/17/21 19:01 U Benzodiazepines Scrn Negative 08/17/21 19:01 Urine Cocaine Screen Negative 08/17/21 19:01 U Marijuana (THC) Screen Negative 08/17/21 19:01 Drugs of Abuse Note Disclamer 08/17/21 19:01 Plasma/Serum Alcohol < 0.01 % (0-0.07) 08/17/21 16:43 Coronavirus (PCR) Negative (Negative) 08/18/21 10:02 Hepatitis A IgM Ab Non-reactive (NonReactive) 08/17/21 20:38 Hep Bs Antigen Non-reactive (Negative) 08/17/21 20:38 Hep B Core IgM Ab Non-reactive (NonReactive) 08/17/21 20:38 Hepatitis C Antibody Non-reactive (NonReactive) 08/17/21 20:38 HIV 1&2 Antibody Rapid Non react (Non React) 08/17/21 20:38 HIV P24 Antigen Non react (Non React) 08/17/21 20:38 Microbiology: Microbiology 08/17/21 16:49 Peripheral/Venous Blood Culture - Preliminary NO GROWTH AFTER 24 HOURS 08/17/21 16:43 Peripheral/Venous Blood Culture - Preliminary NO GROWTH AFTER 24 HOURS Active Medications - Current Medications Current Medications: Generic Name Dose Route Start Last Admin Trade Name Freq PRN Reason Stop Dose Admin Acetaminophen 650 mg 08/17/21 20:03 Acetaminophen 325 Mg Tab PO Q4H PRN Pain MILD(1-3)/Fever >100.5/[employer]INA Albuterol 2.5 mg 08/17/21 20:03 Albuterol 2.5 Mg/3 Ml Nebu IH Q4HRT PRN Shortness Of Breath Folic Acid 1 mg 08/18/21 10:00 08/19/21 09:09 Folic Acid 1 Mg Tab PO 1 mg QDAY LIA Administration Furosemide 20 mg 08/18/21 06:00 08/19/21 06:14 Furosemide 20 Mg/2 Ml Inj IV 20 mg BID@0600,1800 LIA Administration Hydromorphone HCl 0.5 mg 08/17/21 20:03 Hydromorphone 1 Mg/1 Ml Inj IV Q23H PRN Pain , Severe (7-10) Levofloxacin/Dextrose 750 mg in 150 mls @ 100 mls/hr 08/18/21 21:00 08/18/21 21:23 Levaquin 750mg/150ml IV 08/22/21 22:29 100 mls/hr Q24H LIA Administration Protocol Lorazepam 2 mg 08/17/21 20:10 Lorazepam 2 Mg/Ml Vial IV Q1HR PRN CIWA-Ar 8-15 Ondansetron HCl 4 mg 08/17/21 20:03 Ondansetron 4 Mg/2 Ml Inj IV Q8H PRN Nausea And Vomiting Oxycodone/Acetaminophen 1 tab 08/17/21 20:03 Oxycodone /Acetaminophen 5-325mg Tab PO Q16H PRN Pain, Moderate (4-6) Sodium Chloride 10 ml 08/17/21 22:00 08/19/21 09:09 Sodium Chloride 0.9% 10 Ml Flush Syringe IV 10 ml BID LIA Administration Sodium Chloride 10 ml 08/17/21 20:03 Sodium Chloride 0.9% 10 Ml Flush Syringe IV PRN PRN LINE FLUSH
--- NOTE | 2021-08-19 12:54 | Procedure Note ---
Date of procedure: 08/19/21 Pre-op diagnosis: complex right pleural collection Post-op diagnosis: same Procedure: US thoracentesis Findings: complex septated right pleural fluid collection Anesthesia: local Surgeon: TEJINDER HARI Estimated blood loss: none Pathology: none Condition: stable Disposition: floor (unsuccessful thoracentesis. No fluid could be aspirated.)
--- NOTE | 2021-08-19 13:11 | Ultrasound Report ---
ULTRASOUND-GUIDED THORACENTESIS HISTORY: right pleural effusion. COMPARISON: CTA chest 08/17/2021 PROCEDURE: The risks (including but not limited to bleeding, infection, and pneumothorax) and benefi ts were explained to the patient and informed consent was obtained. A time out procedure was perform ed. Ultrasound was used to evaluate the right pleural effusion and locate the optimal site for needle ent ry. Once the skin was marked, the procedure site was prepped and draped in the usual sterile fashion and lidocaine was used for local anesthesia. A 5-[place] thoracentesis catheter was placed in the ri t pleural space. Multiple attempts to aspirate fluid from the complex right pleural collection were made. No fluid could be aspirated which was probably secondary to a thick viscous nature of the flui d. The patient tolerated the procedure well with no complications. A post-procedure chest x-ray was imm ediately ordered. IMPRESSION: Unsuccessful ultrasound-guided right thoracentesis. Right pleural fluid was too viscous t o be aspirated through the thoracentesis catheter. Signer Name: Darrel Corbett Jr, MD Signed: 08/19/2021 1:07 PM Workstation Name: [id number]
--- NOTE | 2021-08-19 14:10 | Progress Note ---
Assessment and Plan 45 y/o male with known CHF, found to have small bilateral pleural effusions with what looks like to me on CT atelectasis with effusion on the right but rads is concerned for empyema. 08/19/21: Spoke with [facility] and they feel this is likely a chronic fluid collection, maybe years old that is fibrinous and hard. This type of thing can be seen when hemothorax is not remedies or if patient had a complicated parapneumonic effusion that was never drained. Doubt this is the main reason for his shortness of breath given his EF of 20%, evidence of volume overload with chronic edema and ascities. Suggest cards consult and a trial of diuretic therapy. Ok with stopping abx at this time and allergy list needs to be updated to contain Rocephin and Shellfish. Guarded prognosis. 1. Patient has had pleuritic like chest pain. Suggest obtaining ultrasound guided thoracentesis and ask that the drain the right sided completely. If puss, then would need chest tube for complete drainage. No objection to abx therapy. Please send fluid for the following: LDH, Protein, Cell count with diff, culture, glucose. 2. Agree with diuretics, obtain 2D echo 3. ok with abx but if space is infected, then drainage is the only thing that will help. Subjective Date of service: 08/19/21 Interval history: EF is 20-25%. Unsuccessful thora attempt by brody today under ultrasound g uidance. Objective Vital Signs - 12hr 08/19/21 08/19/21 08/19/21 05:01 06:00 11:11 Temperature 98.1 F 98.1 F Pulse Rate 111 H 109 H Respiratory 18 20 18 Rate Blood Pressure 121/89 Blood Pressure 111/83 [Right] O2 Sat by Pulse 96 97 99 Oximetry CBC and BMP: 08/18/21 05:27 08/18/21 05:27 ABG, PT/INR, D-dimer: PT/INR, D-dimer PT 18.0 Sec. (12.2-14.9) H 08/17/21 16:43 INR 1.35 (0.87-1.13) H 08/17/21 16:43 Abnormal lab findings: Abnormal Labs 08/17/21 08/17/21 08/17/21 14:50 14:50 15:51 WBC 3.7 L MCHC RDW 18.3 H [place] % (Auto) 13.4 H Eos % (Auto) Lymph # (Auto) PT INR APTT Sodium 135 L Carbon Dioxide 20 L Total Bilirubin 2.40 H 2.40 H Direct Bilirubin 1.4 H Alkaline Phosphatase 188 H NT-Pro-B Natriuret Pep 1705 H Total Protein 9.2 H Albumin 3.4 L 08/17/21 08/18/21 08/18/21 16:43 05:27 05:27 WBC 3.9 L MCHC 31 L RDW 18.3 H [place] % (Auto) 15.1 H Eos % (Auto) 4.5 H Lymph # (Auto) 1.1 L PT 18.0 H INR 1.35 H APTT 37.2 H Sodium 133 L Carbon Dioxide 21 L Total Bilirubin 2.30 H Direct Bilirubin Alkaline Phosphatase 165 H NT-Pro-B Natriuret Pep Total Protein Albumin 2.9 L
--- NOTE | 2021-08-19 16:10 | XRay Report ---
CHEST 1 VIEW INDICATION: recent attempt of right thoracentesis, SOB. COMPARISON: 2 days prior FINDINGS: Support devices: None. Heart: Stable. Lungs/Pleura: No right pneumothorax. Pleural-parenchymal disease in the right lower hemithorax is unc hanged. There is also a small left pleural effusion. IMPRESSION: 1. No right-sided pneumothorax. Signer Name: Jamie Tirado MD Signed: 08/19/2021 4:06 PM Workstation Name: [id number]
[2021-08-20 05:00] LABS: Hemoglobin 12.7 gm/dl (11.8-15.2); Mean Corpuscular HGB Conc 32 % (32-34); Mean Corpuscular Volume 93 fl (84-94); Platelet Count 213 K/mm3 (140-440); Red Blood Count 4.29 M/mm3 (3.65-5.03); Red Cell Distribution Width 18.2 % (13.2-15.2)
[2021-08-20 05:03] LABS: BUN/Creatinine Ratio 19; Blood Urea Nitrogen 19 mg/dL (9-20); Calcium 9.2 mg/dL (8.4-10.2); Hemolysis Index 1
[2021-08-20] MEDS: FUROSEMIDE 20 MG/2 ML INJ IV SCH (05:42)
[2021-08-20 06:54] LABS: Basophils % (Manual) 0 % (0.0-1.8); Total Cells Counted 100
[2021-08-20 06:55] LABS: Platelet Estimate Consistent w Auto; RBC Morphology Normal
[2021-08-20] MEDS: FOLIC ACID 1 MG TAB PO SCH (11:08)
--- NOTE | 2021-08-20 11:34 | Progress Note ---
Assessment and Plan 45 y/o male with known CHF, found to have small bilateral pleural effusions with what looks like to me on CT atelectasis with effusion on the right but rads is concerned for empyema. 08/20/21: Pulm status is stable. Will sign off at this time. Please call if any questions or concerns. 08/19/21: Spoke with [facility] and they feel this is likely a chronic fluid collection, maybe years old that is fibrinous and hard. This type of thing can be seen when hemothorax is not remedies or if patient had a complicated parapneumonic effusion that was never drained. Doubt this is the main reason for his shortness of breath given his EF of 20%, evidence of volume overload with chronic edema and ascities. Suggest cards consult and a trial of diuretic therapy. Ok with stopping abx at this time and allergy list needs to be updated to contain Rocephin and Shellfish. Guarded prognosis. 1. Patient has had pleuritic like chest pain. Suggest obtaining ultrasound guided thoracentesis and ask that the drain the right sided completely. If p uss, then would need chest tube for complete drainage. No objection to abx therapy. Please send fluid for the following: LDH, Protein, Cell count with diff, culture, glucose. 2. Agree with diuretics, obtain 2D echo 3. ok with abx but if space is infected, then drainage is the only thing that w ill help. Subjective Date of service: 08/20/21 Interval history: Sitting up on side of bed using computer. Remains on room air. Comfortable. Unsure if he had trauma to his right side or prior infection. Objective CBC and BMP: 08/20/21 04:18 08/20/21 04:18 ABG, PT/INR, D-dimer: PT/INR, D-dimer PT 18.0 Sec. (12.2-14.9) H 08/17/21 16:43 INR 1.35 (0.87-1.13) H 08/17/21 16:43 Abnormal lab findings: Abnormal Labs 08/17/21 08/17/21 08/17/21 14:50 14:50 15:51 WBC 3.7 L MCHC RDW 18.3 H [place] % (Auto) 13.4 H Eos % (Auto) Lymph # (Auto) Lymphocytes # (Manual) PT INR APTT Sodium 135 L Carbon Dioxide 20 L Total Bilirubin 2.40 H 2.40 H Direct Bilirubin 1.4 H Alkaline Phosphatase 188 H NT-Pro-B Natriuret Pep 1705 H Total Protein 9.2 H Albumin 3.4 L 08/17/21 08/18/21 08/18/21 16:43 05:27 05:27 WBC 3.9 L MCHC 31 L RDW 18.3 H [place] % (Auto) 15.1 H Eos % (Auto) 4.5 H Lymph # (Auto) 1.1 L Lymphocytes # (Manual) PT 18.0 H INR 1.35 H APTT 37.2 H Sodium 133 L Carbon Dioxide 21 L Total Bilirubin 2.30 H Direct Bilirubin Alkaline Phosphatase 165 H NT-Pro-B Natriuret Pep Total Protein Albumin 2.9 L 08/20/21 08/20/21 04:18 04:18 WBC 4.0 L MCHC RDW 18.2 H [place] % (Auto) Eos % (Auto) Lymph # (Auto) Lymphocytes # (Manual) 1.0 L PT INR APTT Sodium 136 L Carbon Dioxide 21 L Total Bilirubin Direct Bilirubin Alkaline Phosphatase NT-Pro-B Natriuret Pep Total Protein Albumin
--- NOTE | 2021-08-20 11:48 | Progress Note ---
Assessment and Plan Assessment and plan: Acute systolic heart failure. EF 20% Bilateral pleural effusion. CTA suggestive of empyema for right pleural effusion EtOH abuse. Monoclonal gammopathy 08/18/2021. Continue O2 supplementation to maintain sats greater than 92%. Continue IV antibiotics of Levaquin. Consider ID consultation. Await pulmonary evaluation. Follow-up echocardiogram for bilateral pleural effusion. However, I suspect pleural effusions are para pneumonic. Check procalcitonin levels. 08/19/2021. We will plan for thoracentesis to further evaluate pleural effusion. Follow-up echocardiogram. Consider cardiology consultation. Continue antibiotics for now. 08/20/2021. Pulmonology believes that the viscous fluid is likely fibrinous from scar tissue relative to a remote hemothorax or old loculated effusion that has now healed. Dr. Holloway does not feel that there is any active infection or empyema. Pulmonary signed off. Etiology of dyspnea/respiratory failure is related to volume overload and pulmonary edema. Echocardiogram with EF of 20%. Will consult cardiology for further evaluation of new systolic heart failure. History Interval history: No new issues overnight Hospitalist Physical - Constitutional Vitals: Temp Pulse Resp BP Pulse Ox 98.1 F 111 H 20 117/80 100 08/19/21 22:41 08/19/21 22:41 08/20/21 10:00 08/19/21 22:41 08/20/21 10:00 General appearance: Present: no acute distress - EENT Eyes: Present: PERRL, EOM intact ENT: hearing intact, clear oral mucosa, dentition normal - Neck Neck: Present: supple, normal ROM - Respiratory Respiratory effort: normal Respiratory: bilateral: CTA - Cardiovascular Rhythm: regular Heart Sounds: Present: S1 & S2. Absent: gallop, rub - Extremities Extremities: no ischemia, No edema, Full ROM - Abdominal General gastrointestinal: soft, non-tender, non-distended, normal bowel sounds - Integumentary Integumentary: Present: clear, warm, dry - Neurologic Neurologic: CNII-XII intact, moves all extremities HEART Score - HEART Score Troponin: Troponin T < 0.010 ng/mL (0.00-0.029) 08/17/21 19:37 Results - Labs CBC & Chem 7: 08/20/21 04:18 08/20/21 04:18 Labs: Laboratory Last Values WBC 4.0 K/mm3 (4.5-11.0) L 08/20/21 04:18 RBC 4.29 M/mm3 (3.65-5.03) 08/20/21 04:18 Hgb 12.7 gm/dl (11.8-15.2) 08/20/21 04:18 Hct 40.0 % (35.5-45.6) 08/20/21 04:18 MCV 93 fl (84-94) 08/20/21 04:18 MCH 30 pg (28-32) 08/20/21 04:18 MCHC 32 % (32-34) 08/20/21 04:18 RDW 18.2 % (13.2-15.2) H 08/20/21 04:18 Plt Count 213 K/mm3 (140-440) 08/20/21 04:18 Lymph % (Auto) 28.8 % (13.4-35.0) 08/18/21 05:27 [place] % (Auto) 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 08/20/21 04:18 Eos % (Auto) 4.5 % (0.0-4.3) H 08/18/21 05:27 Baso % (Auto) 1.4 % (0.0-1.8) 08/18/21 05:27 Lymph # (Auto) 1.1 K/mm3 (1.2-5.4) L 08/18/21 05:27 [place] # (Auto) 0.6 K/mm3 (0.0-0.8) 08/18/21 05:27 Eos # (Auto) 0.2 K/mm3 (0.0-0.4) 08/18/21 05:27 Baso # (Auto) 0.1 K/mm3 (0.0-0.1) 08/18/21 05:27 Add Manual Diff Complete 08/20/21 04:18 Total Counted 100 08/20/21 04:18 Seg Neutrophils % 50.2 % (40.0-70.0) 08/18/21 05:27 Seg Neuts % (Manual) 65.0 % (40.0-70.0) 08/20/21 04:18 Band Neutrophils % 0 % 08/20/21 04:18 Lymphocytes % (Manual) 25.0 % (13.4-35.0) 08/20/21 04:18 Reactive Lymphs % (Man) 0 % 08/20/21 04:18 Monocytes % (Manual) 7.0 % (0.0-7.3) 08/20/21 04:18 Eosinophils % (Manual) 3.0 % (0.0-4.3) 08/20/21 04:18 Basophils % (Manual) 0 % (0.0-1.8) 08/20/21 04:18 Metamyelocytes % 0 % 08/20/21 04:18 Myelocytes % 0 % 08/20/21 04:18 Promyelocytes % 0 % 08/20/21 04:18 Blast Cells % 0 % 08/20/21 04:18 Nucleated RBC % Not Reportable 08/20/21 04:18 Seg Neutrophils # 2.0 K/mm3 (1.8-7.7) 08/18/21 05:27 Seg Neutrophils # Man 2.6 K/mm3 (1.8-7.7) 08/20/21 04:18 Band Neutrophils # 0.0 K/mm3 08/20/21 04:18 Lymphocytes # (Manual) 1.0 K/mm3 (1.2-5.4) L 08/20/21 04:18 Abs React Lymphs (Man) 0.0 K/mm3 08/20/21 04:18 Monocytes # (Manual) 0.3 K/mm3 (0.0-0.8) 08/20/21 04:18 Eosinophils # (Manual) 0.1 K/mm3 (0.0-0.4) 08/20/21 04:18 Basophils # (Manual) 0.0 K/mm3 (0.0-0.1) 08/20/21 04:18 Metamyelocytes # 0.0 K/mm3 08/20/21 04:18 Myelocytes # 0.0 K/mm3 08/20/21 04:18 Promyelocytes # 0.0 K/mm3 08/20/21 04:18 Blast Cells # 0.0 K/mm3 08/20/21 04:18 WBC Morphology Not Reportable 08/20/21 04:18 Hypersegmented Neuts Not Reportable 08/20/21 04:18 Hyposegmented Neuts Not Reportable 08/20/21 04:18 Hypogranular Neuts Not Reportable 08/20/21 04:18 Smudge Cells Not Reportable 08/20/21 04:18 Toxic Granulation Not Reportable 08/20/21 04:18 Toxic Vacuolation Not Reportable 08/20/21 04:18 Dohle Bodies Not Reportable 08/20/21 04:18 Pelger-Huet Anomaly Not Reportable 08/20/21 04:18 James Rods Not Reportable 08/20/21 04:18 Platelet Estimate Consistent w auto 08/20/21 04:18 Clumped Platelets Not Reportable 08/20/21 04:18 Plt Clumps, EDTA Not Reportable 08/20/21 04:18 Large Platelets Not Reportable 08/20/21 04:18 Giant Platelets Not Reportable 08/20/21 04:18 Platelet Satelliting Not Reportable 08/20/21 04:18 Plt Morphology Comment Not Reportable 08/20/21 04:18 RBC Morphology Normal 08/20/21 04:18 Dimorphic RBCs Not Reportable 08/20/21 04:18 Polychromasia Not Reportable 08/20/21 04:18 Hypochromasia Not Reportable 08/20/21 04:18 Poikilocytosis Not Reportable 08/20/21 04:18 Anisocytosis Not Reportable 08/20/21 04:18 Microcytosis Not Reportable 08/20/21 04:18 Macrocytosis Not Reportable 08/20/21 04:18 Spherocytes Not Reportable 08/20/21 04:18 Pappenheimer Bodies Not Reportable 08/20/21 04:18 Sickle Cells Not Reportable 08/20/21 04:18 Target Cells Not Reportable 08/20/21 04:18 Tear Drop Cells Not Reportable 08/20/21 04:18 Ovalocytes Not Reportable 08/20/21 04:18 Helmet Cells Not Reportable 08/20/21 04:18 [place] Bodies Not Reportable 08/20/21 04:18 [place] Rings Not Reportable 08/20/21 04:18 [place] Cells Not Reportable 08/20/21 04:18 Bite Cells Not Reportable 08/20/21 04:18 Crenated Cell Not Reportable 08/20/21 04:18 Elliptocytes Not Reportable 08/20/21 04:18 Acanthocytes (Spur) Not Reportable 08/20/21 04:18 Rouleaux Not Reportable 08/20/21 04:18 Hemoglobin C Crystals Not Reportable 08/20/21 04:18 Schistocytes Not Reportable 08/20/21 04:18 Malaria parasites Not Reportable 08/20/21 04:18 Narendra Bodies Not Reportable 08/20/21 04:18 Hem Pathologist Commnt No 08/20/21 04:18 PT 18.0 Sec. (12.2-14.9) H 08/17/21 16:43 INR 1.35 (0.87-1.13) H 08/17/21 16:43 APTT 37.2 Sec. (24.2-36.6) H 08/17/21 16:43 Sodium 136 mmol/L (137-145) L 08/20/21 04:18 Potassium 3.9 mmol/L (3.6-5.0) 08/20/21 04:18 Chloride 102.3 mmol/L (98-107) 08/20/21 04:18 Carbon Dioxide 21 mmol/L (22-30) L 08/20/21 04:18 Anion Gap 17 mmol/L 08/20/21 04:18 BUN 19 mg/dL (9-20) 08/20/21 04:18 Creatinine 1.0 mg/dL (0.8-1.3) 08/20/21 04:18 Estimated GFR > 60 ml/min 08/20/21 04:18 BUN/Creatinine Ratio 19 % 08/20/21 04:18 Glucose 100 mg/dL (75-100) 08/20/21 04:18 Calcium 9.2 mg/dL (8.4-10.2) 08/20/21 04:18 Magnesium 1.90 mg/dL (1.7-2.3) 08/17/21 16:43 Total Bilirubin 2.30 mg/dL (0.1-1.2) H 08/18/21 05:27 Direct Bilirubin 1.4 mg/dL (0-0.2) H 08/17/21 15:51 Indirect Bilirubin 1.0 mg/dL 08/17/21 15:51 AST 23 units/L (5-40) 08/18/21 05:27 ALT 13 units/L (7-56) 08/18/21 05:27 Alkaline Phosphatase 165 units/L (35-129) H 08/18/21 05:27 Troponin T < 0.010 ng/mL (0.00-0.029) 08/17/21 19:37 NT-Pro-B Natriuret Pep 1705 pg/mL (0-450) H 08/17/21 14:50 Total Protein 8.2 g/dL (6.3-8.2) 08/18/21 05:27 Albumin 2.9 g/dL (3.9-5) L 08/18/21 05:27 Albumin/Globulin Ratio 0.5 % 08/18/21 05:27 Lipase 17 units/L (13-60) 08/17/21 14:50 Procalcitonin 0.09 ng/mL (<0.15) 08/18/21 10:52 Urine Color Colorless (Yellow) 08/17/21 19:01 Urine Turbidity Clear (Clear) 08/17/21 19:01 Urine pH 5.0 (5.0-7.0) 08/17/21 19:01 Ur Specific [place] 1.005 (1.003-1.030) 08/17/21 19:01 Urine Protein <15 mg/dl mg/dL (Negative) 08/17/21 19:01 Urine Glucose (UA) Negative mg/dL (Negative) 08/17/21 19:01 Urine Ketones Negative mg/dL (Negative) 08/17/21 19:01 Urine Blood Negative (Negative) 08/17/21 19:01 Urine Nitrite Negative (Negative) 08/17/21 19:01 Ur Reducing Substances Not Reportable 08/17/21 19: Urine Bilirubin Negative (Negative) 08/17/21 19:01 Urine Ictotest Not Reportable 08/17/21 19:01 Urine Urobilinogen Not Reportable 08/17/21 19:01 Ur Leukocyte Esterase Negative (Negative) 08/17/21 19:01 Urine WBC (Auto) < 1.0 /HPF (0.0-6.0) 08/17/21 19:01 Urine RBC (Auto) < 1.0 /HPF (0.0-6.0) 08/17/21 19:01 Urine Opiates Screen Negative 08/17/21 19:01 Urine Methadone Screen Negative 08/17/21 19:01 Ur Barbiturates Screen Negative 08/17/21 19:01 Ur Phencyclidine Scrn Negative 08/17/21 19:01 Ur Amphetamines Screen Negative 08/17/21 19:01 U Benzodiazepines Scrn Negative 08/17/21 19:01 Urine Cocaine Screen Negative 08/17/21 19:01 U Marijuana (THC) Screen Negative 08/17/21 19:01 Drugs of Abuse Note Disclamer 08/17/21 19:01 Plasma/Serum Alcohol < 0.01 % (0-0.07) 08/17/21 16:43 Coronavirus (PCR) Negative (Negative) 08/18/21 10:02 Hepatitis A IgM Ab Non-reactive (NonReactive) 08/17/21 20:38 Hep Bs Antigen Non-reactive (Negative) 08/17/21 20:38 Hep B Core IgM Ab Non-reactive (NonReactive) 08/17/21 20:38 Hepatitis C Antibody Non-reactive (NonReactive) 08/17/21 20:38 HIV 1&2 Antibody Rapid Non react (Non React) 08/17/21 20:38 HIV P24 Antigen Non react (Non React) 08/17/21 20:38 Microbiology: Microbiology 08/17/21 16:49 Peripheral/Venous Blood Culture - Preliminary NO GROWTH AFTER 48 HOURS 08/17/21 16:43 Peripheral/Venous Blood Culture - Preliminary NO GROWTH AFTER 48 HOURS 08/17/21 Unknown Urine,Clean Catch Urine Culture - Preliminary NO GROWTH AFTER 24 HOURS [place]/IV: Voiding Method Toilet Active Medications - Current Medications Current Medications: Generic Name Dose Route Start Last Admin Trade Name Freq PRN Reason Stop Dose Admin Acetaminophen 650 mg 08/17/21 20:03 Acetaminophen 325 Mg Tab PO Q4H PRN Pain MILD(1-3)/Fever >100.5/MEDINA Albuterol 2.5 mg 08/17/21 20:03 Albuterol 2.5 Mg/3 Ml Nebu IH Q4HRT PRN Shortness Of Breath Folic Acid 1 mg 08/18/21 10:00 08/20/21 11:08 Folic Acid 1 Mg Tab PO 1 mg QDAY LIA Administration Furosemide 20 mg 08/18/21 06:00 08/20/21 05:42 Furosemide 20 Mg/2 Ml Inj IV 20 mg BID@0600,1800 LIA Administration Hydromorphone HCl 0.5 mg 08/17/21 20:03 Hydromorphone 1 Mg/1 Ml Inj IV Q23H PRN Pain , Severe (7-10) Levofloxacin/Dextrose 750 mg in 150 mls @ 100 mls/hr 08/18/21 21:00 08/19/21 21:53 Levaquin 750mg/150ml IV 08/22/21 22:29 100 mls/hr Q24H LIA Administration Protocol Lorazepam 2 mg 08/17/21 20:10 Lorazepam 2 Mg/Ml Vial IV Q1HR PRN CIWA-Ar 8-15 Ondansetron HCl 4 mg 08/17/21 20:03 Ondansetron 4 Mg/2 Ml Inj IV Q8H PRN Nausea And Vomiting Oxycodone/Acetaminophen 1 tab 08/17/21 20:03 Oxycodone /Acetaminophen 5-325mg Tab PO Q16H PRN Pain, Moderate (4-6) Sodium Chloride 10 ml 08/17/21 22:00 08/20/21 11:08 Sodium Chloride 0.9% 10 Ml Flush Syringe IV 10 ml BID LIA Administration Sodium Chloride 10 ml 08/17/21 20:03 Sodium Chloride 0.9% 10 Ml Flush Syringe IV PRN PRN LINE FLUSH
[2021-08-20] MEDS ORDERED: FUROSEMIDE 20 MG/2 ML INJ IV SCH (12:16)
--- NOTE | 2021-08-20 12:49 | Consultation ---
History of Present Illness Consult date: 08/20/21 Requesting physician: JOSE WADDELL Consult reason: congestive heart failure History of present illness: Patient is a 45-year-old male who denies any past medical history prior to this admission in the hospital. Patient states that he came to the hospital after following up with his primary care physician who stated he had an abnormal EKG. Furthermore patient states that he has been having shortness of breath and bilateral lower extremity edema in his legs and swelling in his abdomen that has been going on for several weeks. Patient was admitted to the hospital on 08/17/2021. Patient was found to be volume overloaded, have a right-sided pleural effusion, and had an echo which showed an EF of 20 to 25%. Of note prior to this admission patient states that he never had a primary care physician until recently. At time of interview patient states that his shortness of breath is improved and that his lower extremity edema has noticeably improved. Patient denies chest pain, nausea, vomiting, diaphoresis, or lightheadedness. Patient is previously unknown to our practice. Cardiology is consulted for new onset CHF Past History Past Medical History: other (See HPI) Past Surgical History: No surgical history, Other (Reviewed) Social history: . denies: smoking, prescription drug abuse Family history: CAD, diabetes, hypertension Medications and Allergies Allergies Allergy/AdvReac Type Severity Reaction Status Date / Time ceftriaxone [From Rocephin] Allergy Hives Verified 08/19/21 19:23 shellfish derived Allergy Hives Verified 08/19/21 19:24 Active Meds: Active Medications Acetaminophen (Acetaminophen 325 Mg Tab) 650 mg PO Q4H PRN PRN Reason: Pain MILD(1-3)/Fever >100.5/MEDINA Albuterol (Albuterol 2.5 Mg/3 Ml Nebu) 2.5 mg IH Q4HRT PRN PRN Reason: Shortness Of Breath Folic Acid (Folic Acid 1 Mg Tab) 1 mg PO QDAY [facility] Last Admin: 08/20/21 11:08 Dose: 1 mg Furosemide (Furosemide 40 Mg/4 Ml Inj) 40 mg IV 0600,1800 LIA Hydromorphone HCl (Hydromorphone 1 Mg/1 Ml Inj) 0.5 mg IV Q23H PRN PRN Reason: Pain , Severe (7-10) Levofloxacin/Dextrose (Levaquin 750mg/150ml) 750 mg in 150 mls @ 100 mls/hr IV Q24H [facility]; Protocol Stop: 08/22/21 22:29 Last Admin: 08/19/21 21:53 Dose: 100 mls/hr Lorazepam (Lorazepam 2 Mg/Ml Vial) 2 mg IV Q1HR PRN PRN Reason: CIWA-Ar 8-15 Metoprolol Tartrate (Metoprolol Tartrate 25 Mg Tab) 12.5 mg PO BID [facility] Ondansetron HCl (Ondansetron 4 Mg/2 Ml Inj) 4 mg IV Q8H PRN PRN Reason: Nausea And Vomiting Oxycodone/Acetaminophen (Oxycodone /Acetaminophen 5-325mg Tab) 1 tab PO Q16H PRN PRN Reason: Pain, Moderate (4-6) Sodium Chloride (Sodium Chloride 0.9% 10 Ml Flush Syringe) 10 ml IV BID [facility] Last Admin: 08/20/21 11:08 Dose: 10 ml Sodium Chloride (Sodium Chloride 0.9% 10 Ml Flush Syringe) 10 ml IV PRN PRN PRN Reason: LINE FLUSH Review of Systems Constitutional: weight gain, no weight loss, no fever, no chills, no sweats Ears, nose, mouth and throat: no nasal discharge, no sinus pressure, no sinus pain Cardiovascular: edema, shortness of breath, dyspnea on exertion, leg edema, no chest pain, no orthopnea, no palpitations, no rapid/irregular heart beat Respiratory: shortness of breath, dyspnea on exertion Gastrointestinal: no abdominal pain, no nausea, no vomiting Musculoskeletal: no neck stiffness, no neck pain Integumentary: no rash, no pruritis, no redness Neurological: no head injury, no transient paralysis, no paralysis Psychiatric: no anxiety, no memory loss Endocrine: no cold intolerance, no heat intolerance Hematologic/Lymphatic: no easy bruising, no easy bleeding Physical Examination Vital Signs Temp Pulse Resp BP Pulse Ox 98.3 F 108 H 18 136/97 97 08/17/21 14:19 08/17/21 14:19 08/17/21 14:19 08/17/21 14:19 08/17/21 14:19 General appearance: no acute distress HEENT: Positive: PERRL, Normocephaly Neck: Positive: trachea midline Cardiac: Positive: Reg Rate and Rhythm Lungs: Positive: Decreased Breath Sounds Neuro: Positive: Grossly Intact Abdomen: Positive: Soft, Distended Skin: Negative: Rash, Suspicious Lesions, Ulceration Extremities: Present: upper extr. pulses, edema Results 08/20/21 04:18 08/21/21 04:43 CBC 08/20/21 Range/Units 04:18 WBC 4.0 L (4.5-11.0) K/mm3 RBC 4.29 (3.65-5.03) M/mm3 Hgb 12.7 (11.8-15.2) gm/dl Hct 40.0 (35.5-45.6) % Plt Count 213 (140-440) K/mm3 Comprehensive Metabolic Panel 08/20/21 Range/Units 04:18 Sodium 136 L (137-145) mmol/L Potassium 3.9 (3.6-5.0) mmol/L Chloride 102.3 (98-107) mmol/L Carbon Dioxide 21 L (22-30) mmol/L BUN 19 (9-20) mg/dL Creatinine 1.0 (0.8-1.3) mg/dL Glucose 100 (75-100) mg/dL Calcium 9.2 (8.4-10.2) mg/dL - Imaging and Cardiology Echo: report reviewed EKG interpretations - Telemetry EKG Rhythm: Sinus Rhythm - EKG Sinus rhythms and dysrhythmias: sinus rhythm Assessment and Plan Patient is a 45-year-old male who denies any past medical history prior to this admission in the hospital. Patient states that he came to the hospital after following up with his primary care physician who stated he had an abnormal EKG. Furthermore patient states that he has been having shortness of breath and bilateral lower extremity edema in his legs and swelling in his abdomen that has been going on for several weeks New onset CHF Cardiomyopathy Right-sided pleural effusion Echo 08/17/2021-EF 20 to 25%. Flattened septum consistent with right ventricular pressure overload. Right ventricle systolic function is mildly reduced. Right ventricle is moderately dilated. Left atrium is severely dilated. Moderate mitral regurgitation. Mild pulmonic regurgitation. Dilated IVC with poor inspiration collapse consistent with elevated right atrial pressure Plan: EKG is sinus 98 probable left atrial enlargement. No acute ischemic changes. Troponin is negative x3. Patient denies any complaint of chest pain. AMI ruled out Will initiate low-dose beta-raisa metoprolol 12.5 mg p.o. twice daily. We will hold off on initiation of ELAINE or ARB due to soft BP Lipid panel pending Due to the newly diagnosed cardiomyopathy will plan for stress test in the a.m. Patient to be n.p.o. after midnight Discussed plan of care with patient who verbalized and agreed with plan Patient seen in conjunction with Dr. Harper who agrees with this plan of care - Patient Problems (1) Acute exacerbation of CHF (congestive heart failure) Current Visit: Yes Status: Acute (2) Ascites Current Visit: Yes Status: Acute (3) Bilateral pleural effusion Current Visit: Yes Status: Acute (4) Monoclonal gammopathy Current Visit: Yes Status: Acute (5) Pleural effusion Current Visit: Yes Status: Acute
--- NOTE | 2021-08-20 13:16 | Electrocardiograph Report ---
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
[2021-08-20 14:11] LABS: Chol/HDL Ratio 4.75 %
[2021-08-20] MEDS: FUROSEMIDE 40 MG/4 ML INJ IV SCH (18:00)
[2021-08-20] MEDS: METOPROLOL TARTRATE 25 MG TAB PO SCH (23:30)
[2021-08-21 05:24] LABS: BUN/Creatinine Ratio 3
[2021-08-21 05:32] LABS: Blood Urea Nitrogen TNR mg/dL (9-20); Calcium TNR mg/dL (8.4-10.2); Hemolysis Index TNR
[2021-08-21] MEDS: FUROSEMIDE 40 MG/4 ML INJ IV SCH (06:23)
[2021-08-21] MEDS ORDERED: REGADENOSON 0.4 MG/5 ML INJ IV ONE (07:39)
--- NOTE | 2021-08-21 10:28 | Progress Note ---
Assessment and Plan Assessment and plan: Acute systolic heart failure. EF 20% Bilateral pleural effusion. CTA suggestive of empyema for right pleural effusion EtOH abuse. Monoclonal gammopathy 08/18/2021. Continue O2 supplementation to maintain sats greater than 92%. Continue IV antibiotics of Levaquin. Consider ID consultation. Await pulmonary evaluation. Follow-up echocardiogram for bilateral pleural effusion. However, I suspect pleural effusions are para pneumonic. Check procalcitonin levels. 08/19/2021. We will plan for thoracentesis to further evaluate pleural effusion. Follow-up echocardiogram. Consider cardiology consultation. Continue antibiotics for now. 08/20/2021. Pulmonology believes that the viscous fluid is likely fibrinous from scar tissue relative to a remote hemothorax or old loculated effusion that has now healed. Dr. Holloway does not feel that there is any active infection or empyema. Pulmonary signed off. Etiology of dyspnea/respiratory failure is related to volume overload and pulmonary edema. Echocardiogram with EF of 20%. Will consult cardiology for further evaluation of new systolic heart failure. 08/21/2021. Troponin is negative. Cardiology initiated low-dose beta-raisa metoprolol 12.5 mg twice daily and will hold on initiation of ELAINE/ARB due to hypotension. Patient with stress test this morning for newly diagnosed cardiomyopathy to rule out ischemic etiology. History Interval history: No new issues overnight Hospitalist Physical - Constitutional Vitals: Temp Pulse Resp BP Pulse Ox 98.5 F 97 H 18 113/83 100 08/20/21 22:53 08/20/21 23:30 08/21/21 01:36 08/20/21 23:30 08/21/21 01:36 General appearance: Present: no acute distress - EENT Eyes: Present: PERRL, EOM intact ENT: hearing intact, clear oral mucosa, dentition normal - Neck Neck: Present: supple, normal ROM - Respiratory Respiratory effort: normal Respiratory: bilateral: CTA - Cardiovascular Rhythm: regular Heart Sounds: Present: S1 & S2. Absent: gallop, rub - Extremities Extremities: no ischemia, No edema, Full ROM - Abdominal General gastrointestinal: soft, non-tender, non-distended, normal bowel sounds - Integumentary Integumentary: Present: clear, warm, dry - Neurologic Neurologic: CNII-XII intact, moves all extremities HEART Score - HEART Score Troponin: Troponin T < 0.010 ng/mL (0.00-0.029) 08/17/21 19:37 Results - Labs CBC & Chem 7: 08/20/21 04:18 08/21/21 04:43 Labs: Laboratory Last Values WBC 4.0 K/mm3 (4.5-11.0) L 08/20/21 04:18 RBC 4.29 M/mm3 (3.65-5.03) 08/20/21 04:18 Hgb 12.7 gm/dl (11.8-15.2) 08/20/21 04:18 Hct 40.0 % (35.5-45.6) 08/20/21 04:18 MCV 93 fl (84-94) 08/20/21 04:18 MCH 30 pg (28-32) 08/20/21 04:18 MCHC 32 % (32-34) 08/20/21 04:18 RDW 18.2 % (13.2-15.2) H 08/20/21 04:18 Plt Count 213 K/mm3 (140-440) 08/20/21 04:18 Lymph % (Auto) 28.8 % (13.4-35.0) 08/18/21 05:27 Clarke % (Auto) Drilling Engineer 08/20/21 04:18 Eos % (Auto) 4.5 % (0.0-4.3) H 08/18/21 05:27 Baso % (Auto) 1.4 % (0.0-1.8) 08/18/21 05:27 Lymph # (Auto) 1.1 K/mm3 (1.2-5.4) L 08/18/21 05:27 Clarke # (Auto) 0.6 K/mm3 (0.0-0.8) 08/18/21 05:27 Eos # (Auto) 0.2 K/mm3 (0.0-0.4) 08/18/21 05:27 Baso # (Auto) 0.1 K/mm3 (0.0-0.1) 08/18/21 05:27 Add Manual Diff Complete 08/20/21 04:18 Total Counted 100 08/20/21 04:18 Seg Neutrophils % 50.2 % (40.0-70.0) 08/18/21 05:27 Seg Neuts % (Manual) 65.0 % (40.0-70.0) 08/20/21 04:18 Band Neutrophils % 0 % 08/20/21 04:18 Lymphocytes % (Manual) 25.0 % (13.4-35.0) 08/20/21 04:18 Reactive Lymphs % (Man) 0 % 08/20/21 04:18 Monocytes % (Manual) 7.0 % (0.0-7.3) 08/20/21 04:18 Eosinophils % (Manual) 3.0 % (0.0-4.3) 08/20/21 04:18 Basophils % (Manual) 0 % (0.0-1.8) 08/20/21 04:18 Metamyelocytes % 0 % 08/20/21 04:18 Myelocytes % 0 % 08/20/21 04:18 Promyelocytes % 0 % 08/20/21 04:18 Blast Cells % 0 % 08/20/21 04:18 Nucleated RBC % Not Reportable 08/20/21 04:18 Seg Neutrophils # 2.0 K/mm3 (1.8-7.7) 08/18/21 05:27 Seg Neutrophils # Man 2.6 K/mm3 (1.8-7.7) 08/20/21 04:18 Band Neutrophils # 0.0 K/mm3 08/20/21 04:18 Lymphocytes # (Manual) 1.0 K/mm3 (1.2-5.4) L 08/20/21 04:18 Abs React Lymphs (Man) 0.0 K/mm3 08/20/21 04:18 Monocytes # (Manual) 0.3 K/mm3 (0.0-0.8) 08/20/21 04:18 Eosinophils # (Manual) 0.1 K/mm3 (0.0-0.4) 08/20/21 04:18 Basophils # (Manual) 0.0 K/mm3 (0.0-0.1) 08/20/21 04:18 Metamyelocytes # 0.0 K/mm3 08/20/21 04:18 Myelocytes # 0.0 K/mm3 08/20/21 04:18 Promyelocytes # 0.0 K/mm3 08/20/21 04:18 Blast Cells # 0.0 K/mm3 08/20/21 04:18 WBC Morphology Not Reportable 08/20/21 04:18 Hypersegmented Neuts Not Reportable 08/20/21 04:18 Hyposegmented Neuts Not Reportable 08/20/21 04:18 Hypogranular Neuts Not Reportable 08/20/21 04:18 Smudge Cells Not Reportable 08/20/21 04:18 Toxic Granulation Not Reportable 08/20/21 04:18 Toxic Vacuolation Not Reportable 08/20/21 04:18 Dohle Bodies Not Reportable 08/20/21 04:18 Pelger-Huet Anomaly Not Reportable 08/20/21 04:18 James Rods Not Reportable 08/20/21 04:18 Platelet Estimate Consistent w auto 08/20/21 04:18 Clumped Platelets Not Reportable 08/20/21 04:18 Plt Clumps, EDTA Not Reportable 08/20/21 04:18 Large Platelets Not Reportable 08/20/21 04:18 Giant Platelets Not Reportable 08/20/21 04:18 Platelet Satelliting Not Reportable 08/20/21 04:18 Plt Morphology Comment Not Reportable 08/20/21 04:18 RBC Morphology Normal 08/20/21 04:18 Dimorphic RBCs Not Reportable 08/20/21 04:18 Polychromasia Not Reportable 08/20/21 04:18 Hypochromasia Not Reportable 08/20/21 04:18 Poikilocytosis Not Reportable 08/20/21 04:18 Anisocytosis Not Reportable 08/20/21 04:18 Microcytosis Not Reportable 08/20/21 04:18 Macrocytosis Not Reportable 08/20/21 04:18 Spherocytes Not Reportable 08/20/21 04:18 Pappenheimer Bodies Not Reportable 08/20/21 04:18 Sickle Cells Not Reportable 08/20/21 04:18 Target Cells Not Reportable 08/20/21 04:18 Tear Drop Cells Not Reportable 08/20/21 04:18 Ovalocytes Not Reportable 08/20/21 04:18 Helmet Cells Not Reportable 08/20/21 04:18 [place] Bodies Not Reportable 08/20/21 04:18 [place] Rings Not Reportable 08/20/21 04:18 Barry Cells Not Reportable 08/20/21 04:18 Bite Cells Not Reportable 08/20/21 04:18 Crenated Cell Not Reportable 08/20/21 04:18 Elliptocytes Not Reportable 08/20/21 04:18 Acanthocytes (Spur) Not Reportable 08/20/21 04:18 Rouleaux Not Reportable 08/20/21 04:18 Hemoglobin C Crystals Not Reportable 08/20/21 04:18 Schistocytes Not Reportable 08/20/21 04:18 Malaria parasites Not Reportable 08/20/21 04:18 Narendra Bodies Not Reportable 08/20/21 04:18 Hem Pathologist Commnt No 08/20/21 04:18 PT 18.0 Sec. (12.2-14.9) H 08/17/21 16:43 INR 1.35 (0.87-1.13) H 08/17/21 16:43 APTT 37.2 Sec. (24.2-36.6) H 08/17/21 16:43 Sodium TNR 08/21/21 04:43 Potassium TNR 08/21/21 04:43 Chloride TNR 08/21/21 04:43 Carbon Dioxide TNR 08/21/21 04:43 Anion Gap TNR 08/21/21 04:43 BUN TNR 08/21/21 04:43 Creatinine TNR 08/21/21 04:43 Estimated GFR 28 ml/min 08/21/21 04:43 BUN/Creatinine Ratio 3 % 08/21/21 04:43 Glucose TNR 08/21/21 04:43 Calcium TNR 08/21/21 04:43 Magnesium 1.90 mg/dL (1.7-2.3) 08/17/21 16:43 Total Bilirubin 2.30 mg/dL (0.1-1.2) H 08/18/21 05:27 Direct Bilirubin 1.4 mg/dL (0-0.2) H 08/17/21 15:51 Indirect Bilirubin 1.0 mg/dL 08/17/21 15:51 AST 23 units/L (5-40) 08/18/21 05:27 ALT 13 units/L (7-56) 08/18/21 05:27 Alkaline Phosphatase 165 units/L (35-129) H 08/18/21 05:27 Troponin T < 0.010 ng/mL (0.00-0.029) 08/17/21 19:37 NT-Pro-B Natriuret Pep 1705 pg/mL (0-450) H 08/17/21 14:50 Total Protein 8.2 g/dL (6.3-8.2) 08/18/21 05:27 Albumin 2.9 g/dL (3.9-5) L 08/18/21 05:27 Albumin/Globulin Ratio 0.5 % 08/18/21 05:27 Triglycerides 58 mg/dL (2-149) 08/20/21 04:18 Cholesterol 95 mg/dL (50-199) 08/20/21 04:18 LDL Cholesterol Direct 68 mg/dL (50-130) 08/20/21 04:18 HDL Cholesterol 20 mg/dL (40-59) L 08/20/21 04:18 Cholesterol/HDL Ratio 4.75 % 08/20/21 04:18 Lipase 17 units/L (13-60) 08/17/21 14:50 Procalcitonin 0.09 ng/mL (<0.15) 08/18/21 10:52 Urine Color Colorless (Yellow) 08/17/21 19:01 Urine Turbidity Clear (Clear) 08/17/21 19:01 Urine pH 5.0 (5.0-7.0) 08/17/21 19:01 Ur Specific [place] 1.005 (1.003-1.030) 08/17/21 19:01 Urine Protein <15 mg/dl mg/dL (Negative) 08/17/21 19:01 Urine Glucose (UA) Negative mg/dL (Negative) 08/17/21 19:01 Urine Ketones Negative mg/dL (Negative) 08/17/21 19:01 Urine Blood Negative (Negative) 08/17/21 19:01 Urine Nitrite Negative (Negative) 08/17/21 19:01 Ur Reducing Substances Not Reportable 08/17/21 19:01 Urine Bilirubin Negative (Negative) 08/17/21 19: Urine Ictotest Not Reportable 08/17/21 19:01 Urine Urobilinogen Not Reportable 08/17/21 19:01 Ur Leukocyte Esterase Negative (Negative) 08/17/21 19:01 Urine WBC (Auto) < 1.0 /HPF (0.0-6.0) 08/17/21 19:01 Urine RBC (Auto) < 1.0 /HPF (0.0-6.0) 08/17/21 19:01 Urine Opiates Screen Negative 08/17/21 19:01 Urine Methadone Screen Negative 08/17/21 19:01 Ur Barbiturates Screen Negative 08/17/21 19:01 Ur Phencyclidine Scrn Negative 08/17/21 19:01 Ur Amphetamines Screen Negative 08/17/21 19:01 U Benzodiazepines Scrn Negative 08/17/21 19:01 Urine Cocaine Screen Negative 08/17/21 19:01 U Marijuana (THC) Screen Negative 08/17/21 19:01 Drugs of Abuse Note Disclamer 08/17/21 19:01 Plasma/Serum Alcohol < 0.01 % (0-0.07) 08/17/21 16:43 Coronavirus (PCR) Negative (Negative) 08/18/21 10:02 Hepatitis A IgM Ab Non-reactive (NonReactive) 08/17/21 20:38 Hep Bs Antigen Non-reactive (Negative) 08/17/21 20:38 Hep B Core IgM Ab Non-reactive (NonReactive) 08/17/21 20:38 Hepatitis C Antibody Non-reactive (NonReactive) 08/17/21 20:38 HIV 1&2 Antibody Rapid Non react (Non React) 08/17/21 20:38 HIV P24 Antigen Non react (Non React) 08/17/21 20:38 Microbiology: Microbiology 08/17/21 16:49 Peripheral/Venous Blood Culture - Preliminary NO GROWTH AFTER 72 HOURS 08/17/21 16:43 Peripheral/Venous Blood Culture - Preliminary NO GROWTH AFTER 72 HOURS 08/17/21 Unknown Urine,Clean Catch Urine Culture - Final NO GROWTH AFTER 48 HOURS [place]/IV: Voiding Method Toilet Active Medications - Current Medications Current Medications: Generic Name Dose Route Start Last Admin Trade Name Freq PRN Reason Stop Dose Admin Acetaminophen 650 mg 08/17/21 20:03 Acetaminophen 325 Mg Tab PO Q4H PRN Pain MILD(1-3)/Fever >100.5/MEDINA Albuterol 2.5 mg 08/17/21 20:03 Albuterol 2.5 Mg/3 Ml Nebu IH Q4HRT PRN Shortness Of Breath Folic Acid 1 mg 08/18/21 10:00 08/20/21 11:08 Folic Acid 1 Mg Tab PO 1 mg QDAY LIA Administration Furosemide 20 mg 08/22/21 10:00 Furosemide 20 Mg Tab PO QDAY LIA Hydromorphone HCl 0.5 mg 08/17/21 20:03 Hydromorphone 1 Mg/1 Ml Inj IV Q23H PRN Pain , Severe (7-10) Levofloxacin/Dextrose 750 mg in 150 mls @ 100 mls/hr 08/18/21 21:00 08/20/21 23:28 Levaquin 750mg/150ml IV 08/22/21 22:29 100 mls/hr Q24H LIA Administration Protocol Lorazepam 2 mg 08/17/21 20:10 Lorazepam 2 Mg/Ml Vial IV Q1HR PRN CIWA-Ar 8-15 Metoprolol Succinate 25 mg 08/21/21 10:00 Metoprolol Succinate Xl 25 Mg Tab PO QDAY LIA Ondansetron HCl 4 mg 08/17/21 20:03 Ondansetron 4 Mg/2 Ml Inj IV Q8H PRN Nausea And Vomiting Oxycodone/Acetaminophen 1 tab 08/17/21 20:03 Oxycodone /Acetaminophen 5-325mg Tab PO Q16H PRN Pain, Moderate (4-6) Sacubitril/Valsartan 1 each 08/21/21 10:00 Sacubitril/Valsartan 24-26 Mg Tab PO BID LIA Sodium Chloride 10 ml 08/17/21 22:00 08/20/21 23:31 Sodium Chloride 0.9% 10 Ml Flush Syringe IV 10 ml BID LIA Administration Sodium Chloride 10 ml 08/17/21 20:03 Sodium Chloride 0.9% 10 Ml Flush Syringe IV PRN PRN LINE FLUSH Spironolactone 25 mg 08/22/21 10:00 Spironolactone 25 Mg Tab PO QDAY LIA
[2021-08-21] MEDS: SACUBITRIL/VALSARTAN 24-26 MG TAB PO SCH ×2 (11:01→23:07)
[2021-08-21] MEDS: FOLIC ACID 1 MG TAB PO SCH (11:01)
[2021-08-21] MEDS: METOPROLOL SUCCINATE XL 25 MG TAB PO SCH (11:01)
[2021-08-21] MEDS: METOPROLOL TARTRATE 25 MG TAB PO SCH (11:13)
--- NOTE | 2021-08-21 11:59 | Progress Note ---
Assessment and Plan Patient is a 45-year-old male who denies any past medical history prior to this admission in the hospital. Patient states that he came to the hospital after following up with his primary care physician who stated he had an abnormal EKG. Furthermore patient states that he has been having shortness of breath and bilateral lower extremity edema in his legs and swelling in his abdomen that has been going on for several weeks New onset CHF Cardiomyopathy Right-sided pleural effusion Echo 08/17/2021-EF 20 to 25%. Flattened septum consistent with right ventricular pressure overload. Right ventricle systolic function is mildly reduced. Right ventricle is moderately dilated. Left atrium is severely dilated. Moderate mitral regurgitation. Mild pulmonic regurgitation. Dilated IVC with poor inspiration collapse consistent with elevated right atrial pressure Lexiscan MPI stress test 08/21/2021-patient has a small mild fixed inferior apical defect with normal perfusion in the anterior inferior septal lateral and apical regions with severe global hypokinesis. Suggestive of nonischemic cardiomyopathy with no significant ischemia Plan: EKG is sinus 98 probable left atrial enlargement. No acute ischemic changes. Troponin is negative x3. Patient denies any complaint of chest pain. AMI ruled out Patient had negative stress test this a.m. Due to new cardiomyopathy will initiate Lasix 20 mg p.o. daily, Aldactone 25 mg p.o. daily, metoprolol XL 25 mg p.o. daily, Entresto Cardiac status otherwise stable Patient has follow-up with Dr. Harper, [facility] customer service specialist, 09/07/2021 at 1 PM in our [place] location. Phone #[phone] Patient seen in conjunction with Dr. Harper who agrees with this plan of care - Patient Problems (1) Acute exacerbation of CHF (congestive heart failure) Current Visit: Yes Status: Acute (2) Ascites Current Visit: Yes Status: Acute (3) Bilateral pleural effusion Current Visit: Yes Status: Acute (4) Monoclonal gammopathy Current Visit: Yes Status: Acute (5) Pleural effusion Current Visit: Yes Status: Acute Subjective Date of service: 08/21/21 Principal diagnosis: HFrEF Interval history: Patient for stress test this a.m. Patient is not on monitor Objective Vital Signs Temp Pulse Resp BP Pulse Ox 08/21/21 01:36 18 100 08/20/21 23:30 97 H 113/83 08/20/21 22:53 98.5 F 104 H 20 115/80 97 08/20/21 16:43 97 H 113/83 99 - Physical Examination General: No Apparent Distress HEENT: Positive: PERRL, Normocephaly Neck: Positive: trachea midline Cardiac: Positive: Reg Rate and Rhythm Lungs: Positive: Normal Breath Sounds Neuro: Positive: Grossly Intact Abdomen: Positive: Soft, Distended Skin: Negative: Rash, Suspicious Lesions, Ulceration Extremities: Present: upper extr. pulses, edema - Labs and Meds Lipids 08/20/21 Range/Units 04:18 Triglycerides 58 (2-149) mg/dL Cholesterol 95 (50-199) mg/dL HDL Cholesterol 20 L (40-59) mg/dL Cholesterol/HDL Ratio 4.75 % Comprehensive Metabolic Panel 08/21/21 Range/Units 04:43 Sodium TNR Potassium TNR Chloride TNR Carbon Dioxide TNR BUN TNR Creatinine TNR Glucose TNR Calcium TNR - Imaging and Cardiology Echo: report reviewed - Telemetry EKG Rhythm: Sinus Rhythm - EKG Sinus rhythms and dysrhythmias: sinus rhythm
--- NOTE | 2021-08-22 08:46 | Discharge Summary ---
Providers - Providers Date of Admission: 08/17/21 20:03 Date of discharge: 08/22/21 Attending physician: JOSE WADDELL 08/19/21 11:01 Consult to Physician [CONS] Routine Comment: Consulting Provider: TEJINDER HAIR Physician Instructions: Reason For Exam: thoracentesis 08/20/21 11:47 Consult to Physician [CONS] Routine Comment: Consulting Provider: BK HARPER Physician Instructions: Reason For Exam: new HF Primary care physician: DIALYSIS TECH Hospitalization Reason for admission: SOB Condition: Stable Hospital course: Patient is a 45-year-old male who denies any past medical history prior to this admission in the hospital. Patient states that he came to the hospital after following up with his primary care physician who stated he had an abnormal EKG. Furthermore patient states that he has been having shortness of breath and bilateral lower extremity edema in his legs and swelling in his abdomen that has been going on for several weeks. Patient was admitted to the hospital on 08/17/2021. The patient was initially admitted with diagnosis of bilateral pneumonia with suspected COVID-19 pneumonia and bilateral pleural effusion. CTA of chest was obtained for further evaluation and it was suggestive of empyema for the right pleural effusion. The pleural effusions were felt to be parapneumonic initially. Pulmonology was consulted and recommended ultrasound- guided thoracentesis. However, no fluid was able to be obtained. Radiology felt that the fluid collection was likely chronic and related to an old hemothorax or complicated parapneumonic effusion that was never treated. Further evaluation for the pleural effusions included echocardiogram which revealed an EF of 20%. Cardiology was consulted for new onset CHF. Cardiology further recommended Lexiscan stress test on 08/21 which revealed a small mild fixed inferior apical defect with normal perfusion in the anterior inferior septal lateral and apical regions with severe global hypokinesis. Suggestive of nonischemic cardiomyopathy with no significant ischemia. Cardiology felt that this was related to a new cardiomyopathy and initiated Lasix 20 mg p.o. daily, Aldactone 25 mg p.o. daily, metoprolol XL 25 mg p.o. daily, Entresto. Cardiology felt the patient could discharge home and follow-up with Dr. Harper, [facility] mobile security specialist, 09/07/2021 at 1 PM in our [place] location. Phone #[phone]. Dedicated discharge time 35 min Hospital course by date: 08/18/2021. Continue O2 supplementation to maintain sats greater than 92%. Continue IV antibiotics of Levaquin. Consider ID consultation. Await pulmonary evaluation. Follow-up echocardiogram for bilateral pleural effusion. However, I suspect pleural effusions are para pneumonic. Check procalcitonin levels. 08/19/2021. We will plan for thoracentesis to further evaluate pleural effusion. Follow-up echocardiogram. Consider cardiology consultation. Continue antibiotics for now. 08/20/2021. Pulmonology believes that the viscous fluid is likely fibrinous from scar tissue relative to a remote hemothorax or old loculated effusion that has now healed. Dr. Holloway does not feel that there is any active infection or empyema. Pulmonary signed off. Etiology of dyspnea/respiratory failure is related to volume overload and pulmonary edema. Echocardiogram with EF of 20%. Will consult cardiology for further evaluation of new systolic heart failure. 08/21/2021. Troponin is negative. Cardiology initiated low-dose beta-raisa metoprolol 12.5 mg twice daily and will hold on initiation of ELAINE/ARB due to hypotension. Patient with stress test this morning for newly diagnosed cardiomyopathy to rule out ischemic etiology. 08/21/2021. Lexiscan stress test on 08/21 which revealed a small mild fixed inferior apical defect with normal perfusion in the anterior inferior septal lateral and apical regions with severe global hypokinesis. Suggestive of nonischemic cardiomyopathy with no significant ischemia. Disposition: 01 HOME / SELF CARE / HOMELESS Final Discharge Diagnosis (Prints w/discharge instructions): New onset acute systolic heart failure, nonischemic cardiomyopathy, right-sided pleural effusion, accelerated hypertension Core Measure Documentation - Palliative Care Palliative Care/ Comfort Measures: Not Applicable - Core Measures Any of the following diagnoses?: heart failure - Heart Failure Discharge Requirements ELAINE/ARB for LVSD if EF <40%: Yes Beta raisa at discharge: Yes Exam - Constitutional Vitals: Temp Pulse Resp BP Pulse Ox 98.5 F 97 H 18 113/83 96 08/20/21 22:53 08/20/21 23:30 08/21/21 22:00 08/20/21 23:30 08/21/21 22:00 General appearance: Present: no acute distress, well-nourished - EENT Eyes: Present: PERRL ENT: hearing intact, clear oral mucosa - Neck Neck: Present: supple, normal ROM - Respiratory Respiratory effort: normal Respiratory: bilateral: CTA - Cardiovascular Heart Sounds: Present: S1 & S2. Absent: rub, click - Extremities Extremities: pulses symmetrical, No edema Peripheral Pulses: within normal limits - Abdominal General gastrointestinal: Present: soft, non-tender, non-distended, normal bowel sounds Male genitourinary: Present: normal - Integumentary Integumentary: Present: clear, warm, dry - Musculoskeletal Musculoskeletal: gait normal, strength equal bilaterally - Psychiatric Psychiatric: appropriate mood/affect, intact judgment & insight - Neurologic Neurologic: CNII-XII intact, moves all extremities Plan Activity: advance as tolerated Weight Bearing Status: Weight Bear as Tolerated Diet: low fat, low cholesterol, low salt Follow up with: PRIMARY CARE, [Primary Care Provider] - 3-5 Days BK HARPER MD [Staff Physician] - 7 Days Prescriptions: Spironolactone [Aldactone] 25 mg PO QDAY #30 tablet Sacubitril/Valsartan [Entresto 24 - 26 mg] 1 each PO BID #60 tablet Furosemide [Lasix TAB] 20 mg PO QDAY #30 tablet Metoprolol Xl [Metoprolol SUCCINATE ER TAB] 25 mg PO QDAY #30 tablet
[2021-08-22] MEDS: FOLIC ACID 1 MG TAB PO SCH (09:47)
[2021-08-22] MEDS: SACUBITRIL/VALSARTAN 24-26 MG TAB PO SCH (09:48)
[2021-08-22] MEDS: METOPROLOL SUCCINATE XL 25 MG TAB PO SCH (09:48)
[2021-08-22 09:49] VITALS: BP 104/78
[2021-08-22] MEDS ORDERED: FUROSEMIDE 20 MG TAB PO SCH (10:00)
[2021-08-22] MEDS ORDERED: SPIRONOLACTONE 25 MG TAB PO SCH (10:00)
== END 2021-08-22 13:10 | disposition home or self-care (01) | DRG 291 ==
LOC: ED 12:59 → 3A 20:03
PROVIDERS: ADMIT Internal Medicine; ATTEND Hospitalist
PROC: 0W993ZZ Drainage of Right Pleural Cavity, Percutaneous Approach (ICD-10-PCS; principal; 2021-08-19)
DX: I11.0 Hypertensive heart disease with heart failure (principal); J18.9 Pneumonia, unspecified organism; I50.21 Acute systolic (congestive) heart failure; R18.8 Other ascites; J91.8 Pleural effusion in other conditions classified elsewhere; F10.20 Alcohol dependence, uncomplicated; Z20.822 Contact with and (suspected) exposure to COVID-19; Z83.3 Family history of diabetes mellitus; Z82.49 Family history of ischemic heart disease and other diseases of the circulatory system; Z91.19 Patient's noncompliance with other medical treatment and regimen; Y90.9 Presence of alcohol in blood, level not specified; D47.2 Monoclonal gammopathy; I42.9 Cardiomyopathy, unspecified; Z88.8 Allergy status to other drugs, medicaments and biological substances; Z91.013 Allergy to seafood
CPT/HCPCS: 32555; 36415; 71045; 71046; 71275; 74177; 76705; 78452; 80048; 80053; 80061; 80074; 80307; 80320; 81001; 82247; 82248; 83690; 83735; 83880; 84145; 84484; 85007; 85025; 85610; 85730; 87040; 87086; 87806; 93005; 93010; 93017; 93306; G0378; A9502; C8929; G0480; J0456; J0696; J1200; J1940; J1956; J2543; J2785; Q9967; U0003